=== PATIENT | male | born 1975 | race Caucasian/White ===

== ENCOUNTER 2016-12-11 18:17 | Inpatient (IN) | payer MEDICAID ==
[~2016-12-11] VITALS: Ht 172.7 cm; Wt 114.0 kg
[~2016-12-11 18:17] MED LIST: IBUP800T25 PO; TAMS-14 PO
[2016-12-11] MEDS ORDERED: SOD CHLORIDE 0.9% 1,000 ML IV STA (19:36)
[2016-12-11] MEDS ORDERED: morphine 4 MG/ML VIAL IV STA ×2 (19:36→23:31)
[2016-12-11] MEDS ORDERED: ONDANSETRON 4 MG INJ IV STA (19:36)
[2016-12-11] MEDS ORDERED: FAMOTIDINE 20 MG INJ IV STA (19:36)
--- NOTE | 2016-12-11 19:57 | ERD ---
ER Documentation Chief Complaint Date/Time DATE: 12/11/16 TIME: 19:54 Chief Complaint RUQ aabd pain x 3 days HPI This is a 41-year-old male, with past medical history for gallstones, presenting to emergency department with right upper quadrant abdominal pain and vomiting 3 days. Patient states he has sharp right upper quadrant abdominal pain that does not radiate. Patient rating pain 8/10. Emesis is nonbloody and nonbilious. Patient states he also has had multiple episodes of loose bowel movements. No constipation. Denies fevers or chills. Patient states he has been unable to tolerate anything by mouth. Did not take anything for pain. ROS All systems reviewed and are negative except as per history of present illness. 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 TABLE OPERATOR 07/07/15 Allergies Allergies: Coded Allergies: No Known Allergy (Unverified , 07/07/15) PMhx/Soc History of Surgery: Yes (Appy) Anesthesia Reaction: No Hx Neurological Disorder: No Hx Respiratory Disorders: No Hx Cardiac Disorders: No Hx Psychiatric Problems: No Hx Miscellaneous Medical Probl: Yes (Gallstones) Hx Alcohol Use: No Hx Substance Use: No Hx Tobacco Use: No Smoking Status: Never smoker Physical Exam Vitals Vital Signs Date Time Temp Pulse Resp B/P Pulse Ox O2 Delivery O2 Flow Rate FiO2 12/11/16 18:41 98.6 88 20 134/82 98 Physical Exam Const: No acute distress, alert Head: Atraumatic Eyes: Normal Conjunctiva ENT: Normal External Ears, Nose and Mouth. Neck: Full range of motion..~ No meningismus. Resp: Clear to auscultation bilaterally. No wheezing, rhonchi or crackles. Cardio: Regular rate and rhythm, no murmurs Abd: Soft, non distended. Normal bowel sounds, tenderness to palpation of right upper quadrant. negative Asher's sign. no McBurney's point tenderness. Skin: No petechiae or rashes Back: No midline or flank tenderness Ext: No cyanosis, or edema Neur: Awake and alert Psych: Normal Mood and Affect Result Diagram: 12/11/16201412/11/162014 Results 24 hrs Laboratory Tests Test 12/11/16 20:15 White Blood Count 6.610^3/ul Red Blood Count 5.4110^6/ul Hemoglobin 16.4g/dl Hematocrit 49.3% Mean Corpuscular Volume 91.1fl Mean Corpuscular Hemoglobin 30.3pg Mean Corpuscular Hemoglobin Concent 33.3g/dl Red Cell Distribution Width 12.6% Platelet Count 73637^3/UL Mean Platelet Volume 10.5fl Neutrophils % 82.1% Lymphocytes % 10.5% Monocytes % 6.1% Eosinophils % 0.5% Basophils % 0.5% Nucleated Red Blood Cells % 0.0/100WBC Neutrophils # 5.410^3/ul Lymphocytes # 0.710^3/ul Monocytes # 0.410^3/ul Eosinophils # 0.010^3/ul Basophils # 0.010^3/ul Nucleated Red Blood Cells # 0.010^3/ul Urine Color KAREN Urine Clarity CLEAR Urine pH 6.0 Urine Specific [place] 1.027 Urine Ketones NEGATIVEmg/dL Urine Nitrite NEGATIVEmg/dL Urine Bilirubin 2+mg/dL Urine Urobilinogen 2+mg/dL Urine Leukocyte Esterase NEGATIVELeu/ul Urine Microscopic RBC 0/HPF Urine Microscopic WBC 1/HPF Urine Mucus FEW/HPF Urine Hemoglobin NEGATIVEmg/dL Urine Glucose NEGATIVEmg/dL Urine Total Protein 1+mg/dl Sodium Level 138mmol/L Potassium Level 4.2mmol/L Chloride Level 100mmol/L Carbon Dioxide Level 30mmol/L Anion Gap 12 Blood Urea Nitrogen 9mg/dl Creatinine 0.84mg/dl Glucose Level 124mg/dl Calcium Level 9.6mg/dl Total Bilirubin 2.2mg/dl Direct Bilirubin 1.50mg/dl Indirect Bilirubin 0.7mg/dl Aspartate Amino Transf (AST/SGOT) 605IU/L Alanine Aminotransferase (ALT/SGPT) 628IU/L Alkaline Phosphatase 153IU/L Total Protein 7.9g/dl Albumin 4.3g/dl Globulin 3.60g/dl Albumin/Globulin Ratio 1.19 Lipase 93U/L Hepatitis B Surface Antigen Pending Hepatitis B Core Total Antibody Pending Hepatitis C Antibody Pending Current Medications Medications (Trade) Dose Ordered Sig/Irma Route PRN Reason Start Time Stop Time Status Last Admin Dose Admin Sodium Chloride (NS) 1,000 ml @ 1,000 mls/hr Q1H STAT IV 12/11/16 19:36 12/11/16 20:35 DC 12/11/16 20:07 Morphine Sulfate (morphine) 4 mg ONCE STAT IV 12/11/16 19:36 12/11/16 19:39 DC 12/11/16 20:08 Ondansetron HCl (Zofran Inj) 4 mg ONCE STAT IV 12/11/16 19:36 12/11/16 19:39 DC 12/11/16 20:07 Famotidine (Pepcid Iv) 20 mg ONCE STAT IV 12/11/16 19:36 12/11/16 19:39 DC 12/11/16 20:07 Procedures/MDM [place] [address] [facility] Main Line: [phone] DIAGNOSTIC IMAGING REPORT Patient: SURJIT MENDIOLA : 1975 Age: 41 Sex: M MR #: [id number] DOS: 12/11/161935 Ordering MD: ADRIANA JETER NP Location: [facility] Room/Bed: PROCEDURE: XR Chest. CLINICAL INDICATION: Abdominal pain. TECHNIQUE: Single frontal chest x-ray. COMPARISON: None available. FINDINGS: The lungs volumes are diminished. There are compressive changes with vascular crowding and basilar atelectasis. No pneumothorax, pleural effusion or consolidation is noted. The cardiomediastinal silhouette is unremarkable. No acute osseous abnormality is noted. IMPRESSION: 1. Low lung volumes with compressive changes and basilar atelectasis. 2. Otherwise, no acute cardiopulmonary abnormality. [place] [address] [facility] Main Line: [phone] DIAGNOSTIC IMAGING REPORT Patient: SURJIT MENDIOLA : 1975 Age: 41 Sex: M MR #: [id number] DOS: 12/11/161935 Ordering MD: ADRIANA JETER NP Location: [facility] Room/Bed: PROCEDURE: Right upper quadrant abdominal ultrasound. CLINICAL INDICATION: Abdominal pain TECHNIQUE: Ayon scale and color doppler ultrasound images of the right upper quadrant of the abdomen. COMPARISON: 07/07/2015 FINDINGS: Pancreas: Not adequately visualized due to overlying bowel gas. Liver: Morphology: Mildly enlarged measuring 19.3 cm. Contour:Normal, no evidence of nodularity. Echogenicity: Increased Focal lesions:None. Main portal vein: Patent with hepatopetal flow. Biliary System: Gallbladder wall: Measures upper limits of normal at 2.5 - 3 mm which appears to be partially due to contraction. Gallstones: Multiple are present. Intrahepatic bile ducts: Normal caliber. Common bile duct diameter (mm): 5.0 Kidneys: Right length (cm) : 11.4 Right cortical thickness: Normal. Echogenicity: Normal. Hydronephrosis: None. Renal calculi: None. Focal lesions: None. Free fluid/ascites: None. Other findings: None. IMPRESSION: Cholelithiasis without evidence of abnormal gallbladder wall thickening to suggest cholecystitis. Normal caliber of the intrahepatic and extrahepatic biliary system. Increased echogenicity of the liver parenchyma suggestive of hepatic steatosis. [place] [address] [facility] Main Line: [phone] DIAGNOSTIC IMAGING REPORT Patient: SURJIT MENDIOLA : 1975 Age: 41 Sex: M MR #: [id number] DOS: 12/11/16 1936 Ordering MD: ADRIANA JETER NP Location: E Room/Bed: PROCEDURE: CT abdomen and pelvis without intravenous contrast. CLINICAL INDICATION: Pain. TECHNIQUE: CT of the abdomen/pelvis was performed utilizing axial images with reconstructions in sagittal and coronal planes. The administered radiation dose is CTDI 23 mGy, DLP 1458 mGy-cm. One or more of the following dose reduction techniques were used: automated exposure control, adjustment of the mA and/or kV according to patient size and/or use of iterative reconstruction technique. COMPARISON: No pertinent prior examinations were submitted for comparison. FINDINGS: Visualized Chest: There is a 5 mm partially visualized nodule in the right lower lobe on the first image. Abdomen: The spleen, pancreas, gallbladder,and adrenal glands are unremarkable. The liver is markedly, diffusely decreased in attenuation, compatible with hepatic steatosis. The gallbladder is distended and contains some stones, most of which are seen in the region of the gallbladder neck. There is diffuse gallbladder wall thickening with some mild surrounding fat infiltrative changes. The kidneys are without hydronephrosis. No definite urinary calculi are seen. There is no evidence of bowel obstruction. The appendix is not seen. There is no evidence of acute appendicitis. No intra-abdominal free air is seen. There is no evidence of intra-abdominal adenopathy or free fluid. Pelvis: There is no evidence of pelvic adenopathy or free fluid. The prostate and bladder are unremarkable. Osseous structures: Unremarkable. IMPRESSION: Findings suggestive of cholecystitis including cholelithiasis, gallbladder distension, wall thickening and surrounding inflammatory changes. Marked hepatic steatosis. EKG: As interpreted by myself and Dr. Chairez Rate/Rhythm: Normal sinus rhythm with heart rate 79 bpm QRS, ST, T-waves: No changes consistent w/ acute ischemia Impression: No evidence of ischemia or arrhythmia MDM: This is a 41-year-old male presenting to emerge department with right upper quadrant abdominal pain, vomiting and diarrhea 3 days. Patient has had 2 episodes of yellow emesis today. He had multiple episodes of loose bowel movements today. Denies any bloody stool. No melena. CBC shows no significant anemia or infection. CMP shows no significant electrolyte imbalance. Elevated liver enzymes, AST 605, ALT 628 ,Alk [id number]. Lipase is 93. UA shows 2+ bilirubin, 2+urobilinogen. Chest x-ray reviewed by radiologist as low lung volumes with compressive changes and basilar atelectasis. Otherwise, no acute cardiopulmonary abnormality. US gallbladder reviewed by radiologist as Cholelithiasis without evidence of abnormal gallbladder wall thickening to suggest cholecystitis. Normal caliber of the intrahepatic and extrahepatic biliary system. Hepatic steatosis. CT abdomen and pelvis reviewed by radiologist as cholecystitis including cholelithiasis, gallbladder distension, wall thickening and surrounding inflammatory changes. Marked hepatic steatosis. Consulted Dr. Mcfarland regarding this patient and we agree that patient should be admitted and diagnosis is Cholecystitis. Departure Diagnosis: Primary Impression: Cholecystitis Condition: ADRIANA Gil NP Dec 11, 2016 19:57
[2016-12-11 20:26] LABS: BASOPHILS % 0.5 % (0.0-2.0); EOSINOPHILS % 0.5 % (0.0-7.0); HEMATOCRIT 49.3 % (42.0-52.0); HEMOGLOBIN 16.4 g/dl (14.0-18.0); LYMPHOCYTES # 0.7 10^3/ul (0.8-2.9); LYMPHOCYTES % 10.5 % (15.0-51.0); MEAN CORPUSCULAR HEMOGLOBIN 30.3 pg (29.0-33.0); MEAN CORPUSCULAR HGB CONC 33.3 g/dl (32.0-37.0); MEAN CORPUSCULAR VOLUME 91.1 fl (82.0-101.0); MEAN PLATELET VOLUME 10.5 fl (7.4-10.4); MONOCYTE # 0.4 10^3/ul (0.3-0.9); MONOCYTES % 6.1 % (0.0-11.0); NEUTROPHIL # 5.4 10^3/ul (1.6-7.5); NEUTROPHILS % 82.1 % (39.0-77.0); PLATELET COUNT 229 10^3/UL (140-415); RED BLOOD COUNT 5.41 10^6/ul (4.70-6.10); RED CELL DISTRIBUTION WIDTH 12.6 % (11.5-14.5); WHITE BLOOD COUNT 6.6 10^3/ul (4.8-10.8)
[2016-12-11 20:35] LABS: ADD UMIC YES; UR ASCORBIC ACID 40 mg/dL (NEGATIVE); UR BILIRUBIN (Dip) 2+ mg/dL (NEGATIVE); UR BLOOD (Dip) NEGATIVE (NEGATIVE); UR CLARITY CLEAR (CLEAR); UR COLOR AMBER (YELLOW); UR GLUCOSE (Dip) NEGATIVE (NEGATIVE); UR KETONES (Dip) NEGATIVE (NEGATIVE); UR LEUKOCYTE ESTERASE (Dip) NEGATIVE Leu/ul (NEGATIVE); UR MUCUS FEW /HPF (NONE SEEN); UR NITRITE (Dip) NEGATIVE (NEGATIVE); UR RBC 0 /HPF (0-5); UR SPECIFIC GRAVITY (Dip) 1.027 (1.003-1.030); UR TOTAL PROTEIN (Dip) 1+ mg/dl (NEGATIVE); UR UROBILINOGEN (Dip) 2+ mg/dL (NEGATIVE)
[2016-12-11 20:54] LABS: ALBUMIN 4.3 g/dl (3.3-4.9); ALBUMIN/GLOBULIN RATIO 1.19; BILIRUBIN,DIRECT 1.5 mg/dl (0.00-0.20); BILIRUBIN,INDIRECT 0.7 mg/dl (0-1.1); BILIRUBIN,TOTAL 2.2 mg/dl (0.2-1.3); CALCIUM 9.6 mg/dl (8.4-10.2); CREATININE 0.84 mg/dl (0.61-1.24); POTASSIUM 4.2 mmol/L (3.5-5.1); TOTAL PROTEIN 7.9 g/dl (6.1-8.1)
--- NOTE | 2016-12-11 21:18 | RADRPT ---
PROCEDURE: Right upper quadrant abdominal ultrasound. CLINICAL INDICATION: Abdominal pain TECHNIQUE: Ayon scale and color doppler ultrasound images of the right upper quadrant of the abdom en. COMPARISON: 07/07/2015 FINDINGS: Pancreas: Not adequately visualized due to overlying bowel gas. Liver: Morphology: Mildly enlarged measuring 19.3 cm. Contour:Normal, no evidence of nodularity. Echogenicity: Increased Focal lesions:None. Main portal vein: Patent with hepatopetal flow. Biliary System: Gallbladder wall: Measures upper limits of normal at 2.5 - 3 mm which appears to be partially due to contraction. Gallstones: Multiple are present. Intrahepatic bile ducts: Normal caliber. Common bile duct diameter (mm): 5.0 Kidneys: Right length (cm) : 11.4 Right cortical thickness: Normal. Echogenicity: Normal. Hydronephrosis: None. Renal calculi: None. Focal lesions: None. Free fluid/ascites: None. Other findings: None. IMPRESSION: Cholelithiasis without evidence of abnormal gallbladder wall thickening to suggest cholecystitis. Normal caliber of the intrahepatic and extrahepatic biliary system. Increased echogenicity of the liver parenchyma suggestive of hepatic steatosis. RPTAT: AADD .Trever Erazo MD, MD Date Time Electronically viewed and signed by .Trever Erazo MD, on 12/11/2016 21:18 .B/
--- NOTE | 2016-12-11 22:02 | RADRPT ---
PROCEDURE: CT abdomen and pelvis without intravenous contrast. CLINICAL INDICATION: Pain. TECHNIQUE: CT of the abdomen/pelvis was performed utilizing axial images with reconstructions in s agittal and coronal planes. The administered radiation dose is CTDI 23 mGy, DLP 1458 mGy-cm. One or more of the following dose reduction techniques were used: automated exposure control, adjustment of the mA and/or kV according to patient size and/or use of iterative reconstruction technique. COMPARISON: No pertinent prior examinations were submitted for comparison. FINDINGS: Visualized Chest: There is a 5 mm partially visualized nodule in the right lower lobe on the first i mage. Abdomen: The spleen, pancreas, gallbladder,and adrenal glands are unremarkable. The liver is markedly, dif fusely decreased in attenuation, compatible with hepatic steatosis. The gallbladder is distended and contains some stones, most of which are seen in the region of the gallbladder neck. There is diffus e gallbladder wall thickening with some mild surrounding fat infiltrative changes. The kidneys are without hydronephrosis. No definite urinary calculi are seen. There is no evidence of bowel obstruction. The appendix is not seen. There is no evidence of acute appendicitis. No intra-abdominal free air is seen. There is no evidence of intra-abdominal adenopathy or free fluid. Pelvis: There is no evidence of pelvic adenopathy or free fluid. The prostate and bladder are unremarkable. Osseous structures: Unremarkable. IMPRESSION: Findings suggestive of cholecystitis including cholelithiasis, gallbladder distension, wall thickeni ng and surrounding inflammatory changes. Marked hepatic steatosis. RPTAT: HIKT .Beni Vasquez MD, Date Time Electronically viewed and signed by .Beni Vasquez MD, on 12/11/2016 22:02 .T/
--- NOTE | 2016-12-11 22:04 | RADRPT ---
PROCEDURE: XR Chest. CLINICAL INDICATION: Abdominal pain. TECHNIQUE: Single frontal chest x-ray. COMPARISON: None available. FINDINGS: The lungs volumes are diminished. There are compressive changes with vascular crowding and basilar atelectasis. No pneumothorax, pleural effusion or consolidation is noted. The cardiomediastinal si lhouette is unremarkable. No acute osseous abnormality is noted. IMPRESSION: 1. Low lung volumes with compressive changes and basilar atelectasis. 2. Otherwise, no acute cardiopulmonary abnormality. RPTAT: HH .Esteban Waller MD, Date Time Electronically viewed and signed by .Esteban Waller MD, on 12/11/2016 22:04 .N/
[2016-12-11 23:05] LABS: HAAIG REFLEX REFLEX FILED
[2016-12-11 23:24] VITALS: TEMP 98.6
[2016-12-12] MEDS ORDERED: ACET-141 PO
[2016-12-12 00:04] LABS: HEPATITIS B CORE ANTIBODY NEGATIVE (NEGATIVE)
[2016-12-12 00:10] VITALS: BP 123/76; PULSE 85; RESP 18; Ht 172.7 cm; Wt 114.0 kg
[2016-12-12] MEDS ORDERED: NACL 0.9% 3 ML SYG IV SCH (01:00)
[2016-12-12] MEDS ORDERED: ONDANSETRON 4 MG INJ IV PRN (01:00)
[2016-12-12] MEDS ORDERED: ACETAMINOPHEN 325 MG TAB PO PRN (01:00)
[2016-12-12] MEDS: SOD CHLORIDE 0.9% 1,000 ML IV SCH ×3 (01:01→20:35)
[2016-12-12] MEDS: PIPER-TAZO 3.375 GM IV (PMX) 100 ML IVPB SCH ×5 (01:01→23:42)
[2016-12-12] MEDS: morphine 2 MG INJ IV PRN ×2 (01:02→21:46)
[2016-12-12 01:38] LABS: INR 1.05; PROTIME 13.7 Sec (12.2-14.2); PT RATIO 1.1
[2016-12-12 01:39] LABS: PARTIAL THROMBOPLASTIN TIME 28.5 Sec (25.0-35.0)
--- NOTE | 2016-12-12 02:27 | HP ---
Date/Time of Note Date/Time of Note DATE: 12/12/16 TIME: 02:23 Assessment/Plan VTE Prophylaxis VTE Prophylaxis Intervention: SCD's Lines/Catheters Urinary Cath still in place: No Assessment/Plan Chief Complaint/Hosp Course This is a 41-year-old male being admitted to the [facility] floor for: #1 acute cholecystitis: CAT scan shows: Findings suggestive of cholecystitis including cholelithiasis, gallbladder distension, wall thickening and surrounding inflammatory changes. Zosyn IV every 6 hours, keep patient n.p.o., IV fluid hydration with normal saline, IV pain control. Surgery consulted via the ED to the surgery on-call physician. #2 obesity: We will check hemoglobin A1c, TSH, lipid panel #3 DVT and GI prophylaxis: SCDs, acid rekha Further treatment strategy will be implemented as per the clinical course Problems: HPI/ROS Admit Date/Time Admit Date/Time Dec 11, 2016 at 23:05 Hx of Present Illness Chief complaint: Right upper quadrant abdominal pain This is a 41-year-old male, with past medical history for gallstones, presenting to emergency department with right upper quadrant abdominal pain and vomiting 3 days. Patient states he has sharp right upper quadrant abdominal pain that does not radiate. Patient rating pain 8/10. Emesis is nonbloody and nonbilious. Patient states he also has had multiple episodes of loose bowel movements. No constipation. Denies fevers or chills. Patient states he has been unable to tolerate anything by mouth. Did not take anything for pain. Allergies: NKDA Medications: None ROS Const: As per HPI Eyes : No pain discharge or redness or change in visual acuity ENT: No pain, sore throat, congestion, congestion, dysphagia or discharge Respiratory: No shortness of breath, cough, sputum, wheezing, or pleuritic pain Cardiovascular: No chest pain, palpitation, PND, or edema GI : As per HPI Genitourinary: No dysuria, hematuria, flank pain , discharge or CVA tenderness Musculoskeletal: No joint pain, back pain, neck pain, restricted range of motion in neck or joints Skin: No rash, bruising or hives Neuro: No headache, dizziness, syncope, seizure, focal weakness Endocrine: No polyuria, polydipsia, temperature intolerance Psych: No hallucination, depression, anxiety or suicidal ideation PMH/Family/Social Past Medical History Medical History: no pertinent history Past Surgical History Past Surgical Hx: appendectomy Family History Significant Family History: no pertinent family hx Social History Alcohol Use: occasionally Smoking Status: Never smoker Drug Use: none Exam/Review of Systems Vital Signs Vitals Vital Signs Date Time Temp Pulse Resp B/P Pulse Ox O2 Delivery O2 Flow Rate FiO2 12/12/16 00:10 98.9 85 18 123/76 94 Room Air Intake and Output 12/11/16 12/11/16 12/12/16 15:00 23:00 07:00 Intake Total 100 ml Balance 100 ml Exam Exam General: Patient is a obese male lying in bed in no acute distress HEENT: Atraumatic, normocephalic. The pupils are equal, round and reactive. Extraocular motor are intact Neck: Supple with full range of motion. No rigidity or meningismus Chest: Nontender Lungs: Clear to auscultation bilaterally no crackles rales or wheezing Heart: Normal S1-S2, Regular rhythm and rate. No murmur, S3, or S4 Abdomen: Soft, tenderness to palpation of the right upper quadrant, nondistended , no guarding. Extremities: Normal to inspection, no edema no cyanosis Neurologic: Normal mental status, speech normal, cranial nerves II through XII are intact, motor and sensory are intact, no focal weakness Additional Comments PROCEDURE: CT abdomen and pelvis without intravenous contrast. CLINICAL INDICATION: Pain. TECHNIQUE: CT of the abdomen/pelvis was performed utilizing axial images with reconstructions in sagittal and coronal planes. The administered radiation dose is CTDI 23 mGy, DLP 1458 mGy-cm. One or more of the following dose reduction techniques were used: automated exposure control, adjustment of the mA and/or kV according to patient size and/or use of iterative reconstruction technique. COMPARISON: No pertinent prior examinations were submitted for comparison. FINDINGS: Visualized Chest: There is a 5 mm partially visualized nodule in the right lower lobe on the first image. Abdomen: The spleen, pancreas, gallbladder,and adrenal glands are unremarkable. The liver is markedly, diffusely decreased in attenuation, compatible with hepatic steatosis. The gallbladder is distended and contains some stones, most of which are seen in the region of the gallbladder neck. There is diffuse gallbladder wall thickening with some mild surrounding fat infiltrative changes. The kidneys are without hydronephrosis. No definite urinary calculi are seen. There is no evidence of bowel obstruction. The appendix is not seen. There is no evidence of acute appendicitis. No intra-abdominal free air is seen. There is no evidence of intra-abdominal adenopathy or free fluid. Pelvis: There is no evidence of pelvic adenopathy or free fluid. The prostate and bladder are unremarkable. Osseous structures: Unremarkable. IMPRESSION: Findings suggestive of cholecystitis including cholelithiasis, gallbladder distension, wall thickening and surrounding inflammatory changes. Marked hepatic steatosis. RPTAT: HIKT .Beni Vasquez MD, Date Time Electronically viewed and signed by .Beni Vasquez MD, on 12/11/2016 22:02 .T/ CC: ADRIANA LAU NP PROCEDURE: XR Chest. CLINICAL INDICATION: Abdominal pain. TECHNIQUE: Single frontal chest x-ray. COMPARISON: None available. FINDINGS: The lungs volumes are diminished. There are compressive changes with vascular crowding and basilar atelectasis. No pneumothorax, pleural effusion or consolidation is noted. The cardiomediastinal silhouette is unremarkable. No acute osseous abnormality is noted. IMPRESSION: 1. Low lung volumes with compressive changes and basilar atelectasis. 2. Otherwise, no acute cardiopulmonary abnormality. RPTAT: .Esteban Waller MD, MD Date Time Electronically viewed and signed by .Esteban Waller MD, MD on 12/11/2016 22: 04 .N/ CC: ADRIANA LAU NP PROCEDURE: Right upper quadrant abdominal ultrasound. CLINICAL INDICATION: Abdominal pain TECHNIQUE: Ayon scale and color doppler ultrasound images of the right upper quadrant of the abdomen. COMPARISON: 07/07/2015 FINDINGS: Pancreas: Not adequately visualized due to overlying bowel gas. Liver: Morphology: Mildly enlarged measuring 19.3 cm. Contour:Normal, no evidence of nodularity. Echogenicity: Increased Focal lesions:None. Main portal vein: Patent with hepatopetal flow. Biliary System: Gallbladder wall: Measures upper limits of normal at 2.5 - 3 mm which appears to be partially due to contraction. Gallstones: Multiple are present. Intrahepatic bile ducts: Normal caliber. Common bile duct diameter (mm): 5.0 Kidneys: Right length (cm) : 11.4 Right cortical thickness: Normal. Echogenicity: Normal. Hydronephrosis: None. Renal calculi: None. Focal lesions: None. Free fluid/ascites: None. Other findings: None. IMPRESSION: Cholelithiasis without evidence of abnormal gallbladder wall thickening to suggest cholecystitis. Normal caliber of the intrahepatic and extrahepatic biliary system. Increased echogenicity of the liver parenchyma suggestive of hepatic steatosis. RPTAT: AADD .Trever Erazo MD, MD Date Time Electronically viewed and signed by .Trever Erazo MD, MD on 12/11/2016 21:18 .B/ CC: ADRIANA LAU NP Labs Result Diagram: 12/11/16201412/11/162014 Medications Medications Current Medications Sodium Chloride (NS) 1,000 ml @ 100 mls/hr Q10H IV Last administered on 01:01; Admin Dose 100 MLS/HR; Start 12/12/16 at 00:35 Ondansetron HCl (Zofran Inj) 4 mg Q6H PRN IV NAUSEA AND/OR VOMITING; Start at 01:00 Acetaminophen (Tylenol Tab) 650 mg Q6H PRN PO PAIN LEVEL 1-3 OR FEVER; Start at 01:00 Morphine Sulfate (morphine) 2 mg Q4H PRN IV SEVERE PAIN LEVEL 7-10 Last administered on 12/12/16 01:02; Admin Dose 2 MG; Start 12/12/16 at 01:00 Famotidine 20 mg 20 mg Q12 IV ; Start 12/12/16 at 09:00 Piperacillin Sod/ Tazobactam Sod (Zosyn 3.375gm/ 100 ml (Pmx)) 100 ml @ 200 mls /hr Q6 IVPB Last administered on 12/12/16t 01:01; Admin Dose 200 MLS/HR; Start 12/12/16 at 01:00 PATRICIA LOCKE Dec 12, 2016 02:27
[2016-12-12 05:20] LABS: BASOPHILS % 0.4 % (0.0-2.0); EOSINOPHILS # 0.1 10^3/ul (0.0-0.5); EOSINOPHILS % 1.8 % (0.0-7.0); HEMATOCRIT 45.1 % (42.0-52.0); HEMOGLOBIN 15.2 g/dl (14.0-18.0); LYMPHOCYTES # 1.1 10^3/ul (0.8-2.9); LYMPHOCYTES % 20.4 % (15.0-51.0); MEAN CORPUSCULAR HEMOGLOBIN 31.4 pg (29.0-33.0); MEAN CORPUSCULAR HGB CONC 33.7 g/dl (32.0-37.0); MEAN CORPUSCULAR VOLUME 93.2 fl (82.0-101.0); MEAN PLATELET VOLUME 10.6 fl (7.4-10.4); MONOCYTE # 0.4 10^3/ul (0.3-0.9); MONOCYTES % 6.7 % (0.0-11.0); NEUTROPHIL # 3.9 10^3/ul (1.6-7.5); NEUTROPHILS % 70.5 % (39.0-77.0); PLATELET COUNT 213 10^3/UL (140-415); RED BLOOD COUNT 4.84 10^6/ul (4.70-6.10); RED CELL DISTRIBUTION WIDTH 12.5 % (11.5-14.5); WHITE BLOOD COUNT 5.6 10^3/ul (4.8-10.8)
[2016-12-12 05:31] LABS: CHOL/HDL RATIO 4.8 RATIO
[2016-12-12 05:35] LABS: ALBUMIN 3.7 g/dl (3.3-4.9); ALBUMIN/GLOBULIN RATIO 1.12; BILIRUBIN,DIRECT 1.8 mg/dl (0.00-0.20); BILIRUBIN,INDIRECT 0.8 mg/dl (0-1.1); BILIRUBIN,TOTAL 2.6 mg/dl (0.2-1.3); CALCIUM 8.9 mg/dl (8.4-10.2); CREATININE 0.8 mg/dl (0.61-1.24)
[2016-12-12 07:41] VITALS: BP 113/58; RESP 18
[2016-12-12] MEDS: FAMOTIDINE 20 MG INJ IV SCH ×2 (08:56→21:43)
--- NOTE | 2016-12-12 09:44 | PN ---
Date/Time of Note Date/Time of Note DATE: 12/12/16 TIME: 09:38 Assessment/Plan VTE Prophylaxis VTE Prophylaxis Intervention: SCD's Lines/Catheters Urinary Cath still in place: No Assessment/Plan Chief Complaint/Hosp Course Assessment and plan #1 acute cholecystitis: CAT scan shows: Findings suggestive of cholecystitis including cholelithiasis, gallbladder distension, wall thickening and surrounding inflammatory changes. General surgery has been consulted, obtain MRCP secondary to hyperbilirubinemia Continue Zosyn IV every 6 hours, keep patient n.p.o., IV fluid hydration with normal saline, IV pain control. #2. Hyperbilirubinemia Obtain MRCP In case of any common bile duct distention or choledocholithiasis we will obtain GI consultation Keep patient n.p.o. #3. obesity: Lipid panel and TSH are within normal limits Recommend low calorie diet when patient is able to tolerate p.o. intake #4. Hepatic steatosis Secondary to #3, panels are within normal limits DVT and GI prophylaxis: SCDs, acid rekha Further treatment strategy will be implemented as per the clinical course Problems: Subjective 24 Hr Interval Summary Free Text/Dictation Patient continues to complain of having abdominal pain N.p.o. Denies of any chest pain or shortness of breath Has not had any episode of nausea and vomiting since admission Exam/Review of Systems Vital Signs Vitals Vital Signs Date Time Temp Pulse Resp B/P Pulse Ox O2 Delivery O2 Flow Rate FiO2 12/12/16 07:41 97.8 72 18 113/58 94 12/12/16 00:10 Room Air Intake and Output 12/11/16 12/11/16 12/12/16 15:00 23:00 07:00 Intake Total 700 ml Balance 700 ml Exam General: The patient is moderately overweight, Not in acute distress. HEENT: Atraumatic, normocephalic. The pupils are equal and round . Neck: Supple with full range of motion. Chest: Normal expansion of the thorax during inspiration Lungs: Clear to auscultation bilaterally Heart: Normal S1-S2, Regular rhythm and rate. Abdomen: Soft , mildly tender epigastric region, nondistended , bowel sounds are present. Extremities: Normal to inspection, no edema no cyanosis Neurologic: Normal mental status,The patient is awake, alert and oriented . Results Result Diagram: 12/12/165 12/12/16424 Results 24 hrs Laboratory Tests Test 12/11/16 20:15 12/12/16 00:58 12/12/16 04:25 White Blood Count 6.6 5.6 Red Blood Count 5.41 4.84 Hemoglobin 16.4 15.2 Hematocrit 49.3 45.1 Mean Corpuscular Volume 91.1 93.2 Mean Corpuscular Hemoglobin 30.3 31.4 Mean Corpuscular Hemoglobin Concent 33.3 33.7 Red Cell Distribution Width 12.6 12.5 Platelet Count 229 213 Mean Platelet Volume 10.5 H 10.6 H Neutrophils % 82.1 H 70.5 Lymphocytes % 10.5 L 20.4 Monocytes % 6.1 6.7 Eosinophils % 0.5 1.8 Basophils % 0.5 0.4 Nucleated Red Blood Cells % 0.0 0.0 Neutrophils # 5.4 3.9 Lymphocytes # 0.7 L 1.1 Monocytes # 0.4 0.4 Eosinophils # 0.0 0.1 Basophils # 0.0 0.0 Nucleated Red Blood Cells # 0.0 0.0 Urine Color KAREN Urine Clarity CLEAR Urine pH 6.0 Urine Specific [place] 1.027 Urine Ketones NEGATIVE Urine Nitrite NEGATIVE Urine Bilirubin 2+ H Urine Urobilinogen 2+ H Urine Leukocyte Esterase NEGATIVE Urine Microscopic RBC 0 Urine Microscopic WBC 1 Urine Mucus FEW A Urine Hemoglobin NEGATIVE Urine Glucose NEGATIVE Urine Total Protein 1+ H Sodium Level 138 138 Potassium Level 4.2 4.0 Chloride Level 100 104 Carbon Dioxide Level 30 28 Anion Gap 12 10 Blood Urea Nitrogen 9 9 Creatinine 0.84 0.80 Glucose Level 124 105 Calcium Level 9.6 8.9 Total Bilirubin 2.2 H 2.6 H Direct Bilirubin 1.50 H 1.80 H Indirect Bilirubin 0.7 0.8 Aspartate Amino Transf (AST/SGOT) 605 H 545 H Alanine Aminotransferase (ALT/SGPT) 628 H 617 H Alkaline Phosphatase 153 H 145 H Total Protein 7.9 7.0 Albumin 4.3 3.7 Globulin 3.60 H 3.30 H Albumin/Globulin Ratio 1.19 1.12 Lipase 93 Hepatitis B Surface Antigen NEGATIVE Hepatitis B Core Total Antibody NEGATIVE Hepatitis C Antibody NEGATIVE Prothrombin Time 13.7 Prothrombin Time Ratio 1.1 INR International Normalized Ratio 1.05 Activated Partial Thromboplast Time 28.5 Hemoglobin A1c 5.7 Magnesium Level 2.3 Triglycerides Level 95 Cholesterol Level 130 LDL Cholesterol, Calculated 84 HDL Cholesterol 27 Cholesterol/HDL Ratio 4.8 Thyroid Stimulating Hormone (TSH) 2.260 Medications Medications Current Medications Sodium Chloride (NS) 1,000 ml @ 100 mls/hr Q10H IV Last administered on 01:01; Admin Dose 100 MLS/HR; Start 12/12/16 at 00:35 Ondansetron HCl (Zofran Inj) 4 mg Q6H PRN IV NAUSEA AND/OR VOMITING; Start at 01:00 Acetaminophen (Tylenol Tab) 650 mg Q6H PRN PO PAIN LEVEL 1-3 OR FEVER; Start at 01:00 Morphine Sulfate (morphine) 2 mg Q4H PRN IV SEVERE PAIN LEVEL 7-10 Last administered on 12/12/16 01:02; Admin Dose 2 MG; Start 12/12/16 at 01:00 Famotidine 20 mg 20 mg Q12 IV Last administered on 12/12/16 08:56; Admin Dose 20 MG; Start 12/12/16 at 09:00 Piperacillin Sod/ Tazobactam Sod (Zosyn 3.375gm/ 100 ml (Pmx)) 100 ml @ 200 mls /hr Q6 IVPB Last administered on 12/12/16 05:28; Admin Dose 200 MLS/HR; Start 12/12/16 at 01:00 NOEMÍ FUENTES MD Dec 12, 2016 09:44
[2016-12-12 14:08] VITALS: BP 110/66; RESP 18
--- NOTE | 2016-12-12 18:45 | RADRPT ---
PROCEDURE: MRI MRCP. CLINICAL INDICATION: Transaminitis. Right upper quadrant pain for 1 month. TECHNIQUE: MRCP was performed without contrast. 3-D/multiplanar reformations and coronal rotating M IP images of the biliary tree were performed by the technologist and at an independent workstation. COMPARISON: CT dated 12/11/2016 and ultrasound dated 12/11/2016. FINDINGS: There is no intra or extrahepatic biliary ductal dilatation or filling defect within the biliary tree. There is irregular thickening of the common bile duct at its midportion. There is no pancreatic ductal dilatation or intraluminal filling defect. There are multiple gallstones, the lar gest measuring 3.1 cm, with diffuse gallbladder wall thickening measuring 4 mm. There is an enlarged portacaval lymph node measuring 12 mm in short axis. The remaining portions of the visualized upper abdomen are unremarkable. IMPRESSION: 1. Cholelithiasis with nonspecific irregular wall thickening of the gallbladder. While this can be seen with chronic cholecystitis, underlying neoplasm is not excluded. Pre and post contrast MRI woul d be helpful to further delineate these findings. Surgical consultation may be warranted. No pericho lecystic inflammatory change or fluid to suggest acute cholecystitis. 2. Nondilated common bile duct with nonspecific wall thickening at the midportion of the common lesa e duct, which may be reactive in nature. No intraluminal filling defect or choledocholithiasis. 3. Nonspecific enlarged portacaval lymph node, which may be reactive in nature. Attention on follow -up is recommended. RPTAT: HLBP .Thai Gaines MD, MD Date Time Electronically viewed and signed by .Thai Gaines MD, MD on 12/12/2016 18:45 .P/
[2016-12-12 19:42] VITALS: BP 119/69; RESP 20
--- NOTE | 2016-12-12 20:19 | CONS ---
Date/Time of Note Date/Time of Note DATE: 12/12/16 TIME: 20:19 Assessment/Plan Assessment/Plan Additional Assessment/Plan [facility] INPATIENT CONSULTATION NOTE DATE OF SERVICE: 12/12/2016 PLACE OF SERVICE: [facility], fourth floor ASSESSMENT AND PLAN: Very pleasant 41-year-old gentleman with known history of cholelithiasis and BMI 38.2, admitted to the emergency department at [facility] on 12/11/2016 with cholelithiasis, acute cholecystitis, and possible choledocholithiasis. Final report of MRCP was pending at the time of my visit with the patient. Due to elevated liver function and injury parameters, the patient may require ERCP and for this reason I recommended gastroenterology consultation. Patient also has hepatic steatosis. I strongly recommended that the patient undergoes laparoscopic cholecystectomy towards the end of this admission. Explained to patient and his and answered all questions. Patient and family appear to understand and agreed with plans. With above assessment, I've recommended the followin. Follow-up after MRCP results 2. Gastrology consultation with consideration for possible need for ERCP 3. Continue antimicrobial therapy with acute cholecystitis 4. Laparoscopic, possible open cholecystectomy perhaps as early as tomorrow afternoon Thank you very much for having me involved in the care of this very pleasant patient and wonderful family. If you have any questions, please feel free to contact me at [phone]. Nature of presenting problem: High severity Please note that, given the multiple number of diagnoses or management options, the moderate amount and/or complexity of data needed to be reviewed, and I risk of complications and/or morbidity or mortality, this qualifies as moderate complexity type of decision-making. Disclaimers: 1. Inadvertent spelling and grammatical errors are likely due to electronic health record (EHR)/dictation software use and do not reflect on the quality of delivered patient care. 2. The electronic timestamp recorded on this note does not necessarily reflect the actual date and time of the visit. 3. Portions of this note are created through electronic templates and computer algorithms that may bring in information either from the system or from other physicians and providers that are outside of my control and may not be always accurate. In general (but not always) this happens either in the beginning or at the end of the note. My portions of the gathered data are generally dictated in 1 continuous block of text and entered into one field in the EHR. 4. There may be other unanticipated errors in the note that are outside of my control. I can only attest to the portions of the note that I have created. Updated clinical summary: Very pleasant 41-year-old gentleman with known history of cholelithiasis and BMI 38.2, admitted to the emergency department at [facility] on 12/11/2016 with cholelithiasis, acute cholecystitis, and possible choledocholithiasis. Comorbidities: 1. BMI 38.2 2. Known cholelithiasis 3. Hepatic steatosis 4. Appendectomy CONSULTATION REQUESTED BY: Susanne Estrella MD HISTORY OF PRESENT ILLNESS: The patient is a very pleasant 41-year-old gentleman with above-mentioned comorbidities who were kindly asked consult regarding management of possible acute cholecystitis. Patient reported 3 day history of abdominal pain that was localized to right upper quadrant, associated with nausea and vomiting. No blood in the stool or urine. 8 out of 10 in strength. No significant alleviating factors or exacerbating factors. No changes in appetite. No fevers or chills. ALLERGIES: NO KNOWN DRUG ALLERGIES MEDICATIONS Documented in the electronic records and reviewed by me. Please see the electronic records for details, as well as details for inpatient medications which were also reviewed by me. SOCIAL HISTORY: The patient lives with family. 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 REVIEW OF SYSTEMS: Other than mentioned above, there were no other pertinent positives or pertinent negatives in an otherwise complete 14 point review of systems. PHYSICAL EXAMINATION GENERAL: The patient appears to be a very pleasant gentleman of descent lying in bed, appearing stated age, and otherwise in no acute distress. BMI: 38.2 VITAL SIGNS: AVSS (please also see auto important data if available as well as the electronic records) HEENT: Normocephalic and atraumatic. Extraocular muscles and hearing are grossly intact bilaterally and symmetrically. Sclerae are nonicteric. Oral cavity is clear; oral mucosa appear to be pink and moist. Dentition: fair. NECK: Supple. There is no lymphadenopathy or JVD. There is no submental, submandibular or supraclavicular lymphadenopathy. CHEST: Rises symmetrically with each breath; patient is breathing comfortably. There are no audible wheezes, rales or rhonchi on the gross exam. HEART: Pulse is regular and palpable on the right wrist. Capillary refill is normal. Carotid pulses are palpable bilaterally and symmetrically in the neck. EXTREMITIES: Lower extremities contain no pitting edema around the ankles bilaterally and symmetrically. ABDOMEN: Abdomen is soft, mild to moderately tender in the right upper quadrant and nondistended. No evidence of ascites, organomegaly, caput medusae , engorged subcutaneous veins, or other abnormalities. There are no peritoneal signs or guarding. SKIN: Appears to be pink and feels warm to touch. NEUROLOGIC: Awake, alert, and follows commands appropriately. LABORATORY DATA: See below IMAGING: See electronic chart. Please note that I've personally reviewed all pertinent available images and I agree in general with their overall reported findings. Consultation Date/Type/Reason Admit Date/Time Dec 11, 2016 at 23:05 Past Medical History Medical History: no pertinent history Past Surgical History Past Surgical Hx: appendectomy Social History Alcohol Use: occasionally Smoking Status: Never smoker Drug Use: none Exam/Review of Systems Vital Signs Vitals Vital Signs Date Time Temp Pulse Resp B/P Pulse Ox O2 Delivery O2 Flow Rate FiO2 12/12/16 19:42 98.1 66 20 119/69 95 12/12/16 00:10 Room Air Intake and Output 12/11/16 12/11/16 12/12/16 15:00 23:00 07:00 Intake Total 700 ml Balance 700 ml Results Result Diagram: 12/12/16 0425 12/12/16 0425 Results 24 hrs Laboratory Tests Test 12/12/16 00:58 12/12/16 04:25 Prothrombin Time 13.7 Prothrombin Time Ratio 1.1 INR International Normalized Ratio 1.05 Activated Partial Thromboplast Time 28.5 White Blood Count 5.6 Red Blood Count 4.84 Hemoglobin 15.2 Hematocrit 45.1 Mean Corpuscular Volume 93.2 Mean Corpuscular Hemoglobin 31.4 Mean Corpuscular Hemoglobin Concent 33.7 Red Cell Distribution Width 12.5 Platelet Count 213 Mean Platelet Volume 10.6 H Neutrophils % 70.5 Lymphocytes % 20.4 Monocytes % 6.7 Eosinophils % 1.8 Basophils % 0.4 Nucleated Red Blood Cells % 0.0 Neutrophils # 3.9 Lymphocytes # 1.1 Monocytes # 0.4 Eosinophils # 0.1 Basophils # 0.0 Nucleated Red Blood Cells # 0.0 Sodium Level 138 Potassium Level 4.0 Chloride Level 104 Carbon Dioxide Level 28 Anion Gap 10 Blood Urea Nitrogen 9 Creatinine 0.80 Glucose Level 105 Hemoglobin A1c 5.7 Calcium Level 8.9 Magnesium Level 2.3 Total Bilirubin 2.6 H Direct Bilirubin 1.80 H Indirect Bilirubin 0.8 Aspartate Amino Transf (AST/SGOT) 545 H Alanine Aminotransferase (ALT/SGPT) 617 H Alkaline Phosphatase 145 H Total Protein 7.0 Albumin 3.7 Globulin 3.30 H Albumin/Globulin Ratio 1.12 Triglycerides Level 95 Cholesterol Level 130 LDL Cholesterol, Calculated 84 HDL Cholesterol 27 Cholesterol/HDL Ratio 4.8 Thyroid Stimulating Hormone (TSH) 2.260 Medications Medications Current Medications Sodium Chloride (NS) 1,000 ml @ 100 mls/hr Q10H IV Last administered on 12:19; Admin Dose 100 MLS/HR; Start 12/12/16 at 00:35 Ondansetron HCl (Zofran Inj) 4 mg Q6H PRN IV NAUSEA AND/OR VOMITING; Start at 01:00 Acetaminophen (Tylenol Tab) 650 mg Q6H PRN PO PAIN LEVEL 1-3 OR FEVER; Start at 01:00 Morphine Sulfate (morphine) 2 mg Q4H PRN IV SEVERE PAIN LEVEL 7-10 Last administered on 12/12/16 01:02; Admin Dose 2 MG; Start 12/12/16 at 01:00 Famotidine 20 mg 20 mg Q12 IV Last administered on 12/12/16 08:56; Admin Dose 20 MG; Start 12/12/16 at 09:00 Piperacillin Sod/ Tazobactam Sod (Zosyn 3.375gm/ 100 ml (Pmx)) 100 ml @ 200 mls /hr Q6 IVPB Last administered on 12/12/16 17:48; Admin Dose 200 MLS/HR; Start 12/12/16 at 01:00 GREG LAWRENCE M.D. Dec 12, 2016 20:19
[2016-12-13] VITALS (29 sets, daily range): BP systolic 109–140; BP diastolic 55–82; PULSE 68–99; RESP 18–108
[2016-12-13] MEDS ORDERED: BUPIVACAINE 0.5%/EPI (SDV) 10 ML INJ INJ ONE
[2016-12-13] MEDS: SOD CHLORIDE 0.9% 1,000 ML IV SCH ×2 (03:21→16:35)
[2016-12-13 05:44] LABS: BASOPHIL # 0.1 10^3/ul (0.0-0.1); BASOPHILS % 0.9 % (0.0-2.0); EOSINOPHILS # 0.3 10^3/ul (0.0-0.5); EOSINOPHILS % 4.3 % (0.0-7.0); HEMATOCRIT 46.3 % (42.0-52.0); HEMOGLOBIN 15.3 g/dl (14.0-18.0); LYMPHOCYTES # 1.3 10^3/ul (0.8-2.9); MEAN CORPUSCULAR HEMOGLOBIN 30.9 pg (29.0-33.0); MEAN CORPUSCULAR VOLUME 93.5 fl (82.0-101.0); MEAN PLATELET VOLUME 10.5 fl (7.4-10.4); MONOCYTE # 0.3 10^3/ul (0.3-0.9); MONOCYTES % 5.9 % (0.0-11.0); NEUTROPHIL # 3.8 10^3/ul (1.6-7.5); NEUTROPHILS % 65.4 % (39.0-77.0); PLATELET COUNT 194 10^3/UL (140-415); RED BLOOD COUNT 4.95 10^6/ul (4.70-6.10); RED CELL DISTRIBUTION WIDTH 12.8 % (11.5-14.5); WHITE BLOOD COUNT 5.8 10^3/ul (4.8-10.8)
[2016-12-13] MEDS: PIPER-TAZO 3.375 GM IV (PMX) 100 ML IVPB SCH ×2 (05:57→12:24)
[2016-12-13 06:45] LABS: ALBUMIN 3.6 g/dl (3.3-4.9); ALBUMIN/GLOBULIN RATIO 1.02; BILIRUBIN,INDIRECT 0.7 mg/dl (0-1.1); BILIRUBIN,TOTAL 0.7 mg/dl (0.2-1.3); CALCIUM 8.8 mg/dl (8.4-10.2); CREATININE 0.99 mg/dl (0.61-1.24); MAGNESIUM 2.1 mg/dl (1.7-2.5); POTASSIUM 4.2 mmol/L (3.5-5.1); TOTAL PROTEIN 7.1 g/dl (6.1-8.1)
[2016-12-13] MEDS ORDERED: ROCURONIUM 50 MG INJ ONE (07:00)
[2016-12-13] MEDS: FAMOTIDINE 20 MG INJ IV SCH ×2 (08:37→20:55)
--- NOTE | 2016-12-13 14:57 | HPN ---
Date/Time of Note Date/Time of Note DATE: 12/13/16 TIME: 14:56 Interval H&P Admission Note Pt. seen H&P reviewed: No system changes Pt. seen H&P reviewed. No system changes (I attest that I have seen and examined the patient and reviewed the operation in detail, as well as its risks , benefits and alternatives of the operation). I attest that I have seen and examined the patient and reviewed in detail the operation, and its associated risks, benefits and alternative. I have answered all the patient's questions to the best of my ability and the patient wishes to proceed. Please refer to rest of electronic medical record for additional updates. GREG LAWRENCE M.D. Dec 13, 2016 14:57
[2016-12-13] MEDS ORDERED: PIPER-TAZO 3.375 GM IV (PMX) 100 ML IVPB ONE (15:00)
--- NOTE | 2016-12-13 15:35 | PN ---
Date/Time of Note Date/Time of Note DATE: 12/13/16 TIME: 15:31 Assessment/Plan VTE Prophylaxis VTE Prophylaxis Intervention: SCD's Lines/Catheters IV Catheter Type (from Nrs): Peripheral IV Urinary Cath still in place: No Assessment/Plan Assessment/Plan 1. Acute cholecystitis, cholelithiasis, on antibiotics, surgery today 2. Transaminitis due to #1, follow up with LFTs 3. Obesity 4. H/o appendectomy Subjective 24 Hr Interval Summary Free Text/Dictation abdominal pain Exam/Review of Systems Vital Signs Vitals Vital Signs Date Time Temp Pulse Resp B/P Pulse Ox O2 Delivery O2 Flow Rate FiO2 12/13/16 14:08 98.6 77 20 112/69 99 Room Air Intake and Output 12/12/16 12/12/16 12/13/16 15:00 23:00 07:00 Intake Total 600 ml 650 ml 850 ml Output Total 1000 ml Balance 600 ml 650 ml -150 ml Exam Constitutional: alert, obese, oriented, well developed Psych: nl mood/affect, no complaints Head: atraumatic, normocephalic Eyes: EOMI, PERRL, nl conjunctiva, nl lids, nl sclera ENMT: nl external ears & nose, nl lips & teeth, nl nasal mucosa & septum Neck: non-tender, supple Respiratory: clear to auscultation, normal air movement, No congested cough, No crackles/rales, No diminished breath sounds, No intercostal retraction, No labored breathing, No other, No respirations, No tactile fremitus, No wheezing Cardiovascular: nl pulses, regular rate and rhythm, No S3, No S4, No bruits, No diastolic murmur, No edema, No gallop, No irregular rhythm, No jugular venous distention (JVD), No murmurs/extra sounds, No other, No rub, No systolic murmur Gastrointestinal: nl liver, spleen, non-tender, soft, No ascites, No bowel sounds, No distended, No firm, No hepatomegaly, No mass , No other, No rebound or guarding, No splenomegaly, No surgical scars, No tender Musculoskeletal: nl extremities to inspection Extremities: normal pulses, No calf tenderness, No clubbing, No cyanosis, No edema, No other, No palpable cord, No pitting pedal edema, No tenderness Neurological: PREMIUM REPRESENTATIVE II-XII intact, nl mental status, nl speech, nl strength Skin: nl turgor Lymph: nl lymph nodes Results Result Diagram: 12/13/16 0505 12/13/16 0500 Results 24 hrs Laboratory Tests Test 12/13/16 05:00 12/13/16 05:05 Sodium Level 137 Potassium Level 4.2 Chloride Level 101 Carbon Dioxide Level 31 Anion Gap 9 Blood Urea Nitrogen 11 Creatinine 0.99 Glucose Level 85 Calcium Level 8.8 Magnesium Level 2.1 Total Bilirubin 0.7 Direct Bilirubin 0.00 # Indirect Bilirubin 0.7 Aspartate Amino Transf (AST/SGOT) 262 #H Alanine Aminotransferase (ALT/SGPT) 547 H Alkaline Phosphatase 162 H Total Protein 7.1 Albumin 3.6 Globulin 3.50 H Albumin/Globulin Ratio 1.02 White Blood Count 5.8 Red Blood Count 4.95 Hemoglobin 15.3 Hematocrit 46.3 Mean Corpuscular Volume 93.5 Mean Corpuscular Hemoglobin 30.9 Mean Corpuscular Hemoglobin Concent 33.0 Red Cell Distribution Width 12.8 Platelet Count 194 Mean Platelet Volume 10.5 H Neutrophils % 65.4 Lymphocytes % 23.0 Monocytes % 5.9 Eosinophils % 4.3 Basophils % 0.9 Nucleated Red Blood Cells % 0.0 Neutrophils # 3.8 Lymphocytes # 1.3 Monocytes # 0.3 Eosinophils # 0.3 Basophils # 0.1 Nucleated Red Blood Cells # 0.0 Medications Medications Current Medications Sodium Chloride (NS) 1,000 ml @ 100 mls/hr Q10H IV Last administered on 03:21; Admin Dose 100 MLS/HR; Start 12/12/16 at 00:35 Ondansetron HCl (Zofran Inj) 4 mg Q6H PRN IV NAUSEA AND/OR VOMITING; Start at 01:00 Acetaminophen (Tylenol Tab) 650 mg Q6H PRN PO PAIN LEVEL 1-3 OR FEVER; Start at 01:00 Morphine Sulfate (morphine) 2 mg Q4H PRN IV SEVERE PAIN LEVEL 7-10 Last administered on 12/12/16 21:46; Admin Dose 2 MG; Start 12/12/16 at 01:00 Famotidine 20 mg 20 mg Q12 IV Last administered on 12/13/16 08:37; Admin Dose 20 MG; Start 12/12/16 at 09:00 Piperacillin Sod/ Tazobactam Sod (Zosyn 3.375gm/ 100 ml (Pmx)) 100 ml @ 200 mls /hr Q6 IVPB Last administered on 12/13/16t 12:24; Admin Dose 200 MLS/HR; Start 12/12/16 at 01:00 TODD QUESADA MD Dec 13, 2016 15:35
[2016-12-13] MEDS ORDERED: BUPIVACAINE 0.5%/EPI (SDV) 10 ML INJ ONE (15:52)
[2016-12-13] MEDS ORDERED: LIDOCAINE 2% (SDV) 5 ML INJ ONE (15:53)
[2016-12-13] MEDS ORDERED: MIDAZOLAM 1 MG/ML 2 ML INJ ONE (15:53)
[2016-12-13] MEDS ORDERED: PROPOFOL 20 ML ONE (15:53)
[2016-12-13] MEDS ORDERED: SUCCINYLCHOLINE CHLORIDE 100 MG/5 ML SYG IV ONE (15:53)
[2016-12-13] MEDS ORDERED: DEXAMETHASONE 4 MG/ML 1 ML INJ ONE (16:02)
[2016-12-13] MEDS ORDERED: ONDANSETRON 4 MG INJ ONE (16:02)
[2016-12-13] MEDS ORDERED: FAMOTIDINE 20 MG INJ ONE (16:02)
[2016-12-13] MEDS ORDERED: PHENYLephrine (100 MCG/ML) 5ML SYG ONE (16:03)
[2016-12-13] MEDS ORDERED: ROPIVACAINE 0.2% 20 ML VIAL ONE (16:05)
[2016-12-13] MEDS ORDERED: SUGAMMADEX SODIUM 200 MG/2 ML VIAL IV ONE (18:03)
--- NOTE | 2016-12-13 18:23 | OPR ---
Date/Time of Note Date/Time of Note DATE: 12/13/16 TIME: 18:23 Operative Report Surgeon see signature line Operative\Procedure Findings [facility] INPATIENT OPERATIVE NOTE PLACE OF SERVICE: [facility] DATE OF SURGERY: 12/13/2016 PREOPERATIVE DIAGNOSIS: 1. Acute cholecystitis with known cholelithiasis 2. BMI 38.2 3. Hepatic steatosis 4. Appendectomy POSTOPERATIVE DIAGNOSIS: 1. Severe acute on chronic cholecystitis with known cholelithiasis 2. BMI 38.2 3. Hepatic steatosis 4. Appendectomy OPERATION: 1. Laparoscopic cholecystectomy, modifier 22 2. Laparoscopic core needle liver biopsy, segment 5 (3 cores) 3. Lysis of adhesions (45 minutes) SURGEON: Greg Lawrence M.D. NURSING HOME DIRECTOR: None ANESTHESIA: General endotracheal tube anesthesia ANESTHESIOLOGIST: Rita Brown M.D. BRIEF SUMMARY: An otherwise uncomplicated but challenging laparoscopic cholecystectomy with core needle liver biopsy were performed with findings of severe acute on chronic cholecystitis and significant hepatic steatosis. Updated clinical summary: Very pleasant 41-year-old gentleman with known history of cholelithiasis and BMI 38.2, admitted to the emergency department at [facility] on 12/11/2016 with cholelithiasis, acute cholecystitis, and possible choledocholithiasis. Comorbidities: 1. BMI 38.2 2. Known cholelithiasis 3. Hepatic steatosis 4. Appendectomy BRIEF HISTORY: The patient is a very pleasant 41-year-old gentleman with known history of cholelithiasis and BMI 38.2, admitted to the emergency department at [facility] on 12/11/2016 with cholelithiasis, acute cholecystitis, and possible choledocholithiasis. Final report of MRCP showed no obvious evidence of choledocholithiasis. Patient's elevated liver function and injury parameters improved on day of operation. Patient also had evidence of hepatic steatosis. I met with the patient and family and counseled them regarding the possible options of treatment, and I strongly suggested a laparoscopic, possible open cholecystectomy. We reviewed the operation in detail as well as the risks, benefits, alternatives, and expected outcomes of this operation. After careful consideration of all the risks, benefits, and alternatives, the patient and family appeared to understand those risks and wished to proceed with surgery. For a detailed report of my consultation with patient and family, please refer to my separate consultation note. STATEMENT OF THE INFORMED CONSENT: The patient and family appeared to understand the risks of the operation to include, but not be limited to risk of postoperative pain and scar tissue, possible infection or bleeding requiring other interventions such as opening the wound, placement of drainage catheters, or other operative interventions; possible injury to surrounding to structures including bowel, bladder, bile duct, or blood vessels, or solid organs such as liver, kidney, or pancreas requiring other interventions or procedures; possible leakage of bile from surgical clip sites, suture lines, or worse, from common bile duct injury, causing significant increase in morbidity and mortality and requiring multiple interventions including but not limited to, placement of drainage catheters, imaging studies, as well as operative interventions; possible other source of sepsis such as urinary tract infections or pneumonias, or other sources of potentially life threatening problems such as deep venous thrombus formation causing pulmonary embolism, myocardial arrhythmias and infarctions, and even . After careful consideration of all their options, the patient and family appeared to understand and wished to proceed with surgery. DESCRIPTION OF PROCEDURE: After obtaining informed consent, the patient was brought into the operating room and was placed in a normal supine position, where successful general endotracheal tube anesthesia was performed. The patient 's abdominal skin was prepped and draped, from the nipple line down to the level of the groins, in the usual sterile fashion. Intravenous access was already in place, and appropriately chosen and dosed prophylactic intravenous antimicrobials were administered. We then called a surgical time-out where patient's identification, date of , nature of the operation, allergies, presence of intravenous antimicrobials, presence of needed equipment, and any other concerns were reviewed and agreed upon by all members of the operating room team. We then started the operation by placing a 5-mm skin incision in the right- upper quadrant, subcostal midclavicular line, and introduced a 5-mm [employer] trocar into the peritoneal space, visualizing all the layers of the abdominal wall as we entered. Note that there was no indication of any injury to underlying structures once we entered the peritoneum. We insufflated the abdominal cavity to a maximum pressure of 15 mmHg, again, confirmed lack of any injury to underlying structures prior to visualizing the rest of the abdominal cavity. We could not see the fundus of the gallbladder. There was no evidence of malignancy. No evidence of calcifications or significant issues with other abnormalities. There was significant amount of adhesions in the right upper quadrant under the liver. Liver appeared to be significantly steatotic. With this information, we went a head and placed the other trocars under direct visualization, after injecting their sites with 0.25% Marcaine with epinephrine , placing a 5-mm trocar in the umbilical midline area, a 5-mm trocar in the right anterior axillary line, and a 12-mm trocar in the midline subxiphoid region. With our instruments in place, we had excellent visualization and access to the right-upper quadrant. We then we grasped the fundus of the gallbladder and pointed up towards the right-upper quadrant. There was significant amount of omental adhesions onto the infundibulum which we took down with judicious use of cautery, as well as meticulous blunt dissection. We were then able to grasp the infundibulum, but were not able to pull it out in order to expose the critical triangle of Calot given the amount of scarring in the region. We placed our usual serosal cuts along the long axis of the gallbladder 1 cm away from its attachment to the liver bed up towards the fundus, and then joined these 2 lines under the infundibulum, taking care not to deliver any energy to underlying structures. Because of the significant amount of inflammation in the triangle of Calot low and to maximize the degree of safety of the operation, I decided to take the gallbladder top-down which we accomplished with cautery. This was very challenging and most of the blood loss during the operation came from this phase. This was also the time of the operation were significantly more than normal amount of work had to be performed and the degree of complexity of the case increased. We then performed meticulous dissection to attempt to identify and circumferentially isolate both the cystic duct and cystic artery. This proved to be rather challenging again. I believe that I had the cystic artery within a pedicle of tissue that was going to the gallbladder on the superior aspect of the dissection. We also had the area that appeared to be the cystic duct going into the infundibulum in the more posterior section of this. Note that the gallbladder was completely taken off the gallbladder bed and these were the only 2 structures going into the gallbladder. Since I was sure that these represented the cystic duct and cystic artery, I decided to transect across them using one firing of the [place] stapler (60 mm, vascular (white) load) each. We then made the 12 mm trocar site larger using cautery and delivered the gallbladder out inside of an EndoCatch bag through the 12-mm trocar site without contaminating the wound. One large stone had to be crushed the process of taking the gallbladder out. The gallbladder was sent to Pathology for evaluation. Returning to the abdominal cavity, we used a Bard core needle liver biopsy to perform biopsy of segment 5 of the liver and sent 3 cores to pathology for permanent sections, and then we ensured that there was adequate hemostasis and bile-stasis prior to placing a 19 [place] Ac drain through the right anterior flank 5 mm trocar site and placed the end in the gallbladder fossa since the operation was so difficult and I wanted to make sure that there is no other issues postoperatively in the gallbladder fossa, fix the drain to the skin using 2-0 nylon suture, removal of all of or equipment, including the pneumoperitoneum, and then reapproximating the 12-mm trocar site with 4 figure- of-eight 0 Vicryl sutures, followed by washing the wounds with copious amounts of normal saline, and then reapproximating the skin using interrupted 4-0 Monocryl sutures. Light dressing was then applied. At the end of the operation, both the sponge count and needle count were reportedly correct x2. The patient tolerated the procedure without any reported complications. ESTIMATED BLOOD LOSS: 150 mL BLOOD OR BLOOD PRODUCT TRANSFUSIONS: None to my knowledge. SPECIMENS: 1. Gallbladder 2. Core needle liver biopsy, segment 5, 3 cores COMPLICATIONS: None. DISPOSITION: Recovery area. Disclaimer: Inadvertent spelling and grammatical errors are likely due to EHR/ dictation software use and do not reflect on the quality of delivered patient care. GREG LAWRENCE M.D. Dec 13, 2016 18:23
[2016-12-13] MEDS ORDERED: NA PHOSPHATE/BIPHOS 133 ML ENEMA PR PRN (18:30)
[2016-12-13] MEDS ORDERED: HYDROmorphONE 1 MG/ML SYG IV PRN (18:30)
[2016-12-13] MEDS ORDERED: HYDROCODONE/APAP (5/325) TAB PO PRN ×2 (18:30)
[2016-12-13] MEDS ORDERED: BISACODYL 10 MG SUPP PR PRN (18:30)
[2016-12-13] MEDS ORDERED: DOCUSATE SODIUM 100 MG CAP PO PRN (18:30)
[2016-12-13] MEDS ORDERED: FENTAnyl 50 MCG/ML VIAL ONE (18:39)
[2016-12-13] MEDS: FENTAnyl 50 MCG/ML VIAL IV PRN ×5 (18:52→20:43)
[2016-12-13] MEDS: HYDROmorphONE (0.2 MG/ML) 10ML SYG IV PRN ×2 (19:27→20:43)
[2016-12-13] MEDS: D5W-0.45 NACL + KCL 20 MEQ 1,000 ML IV SCH (20:55)
[2016-12-13] MEDS: HYDROmorphONE 1 MG/ML SYG IV PRN (21:04)
[2016-12-13 22:48] LABS: ABNORMAL IP MESSAGE 1; HEMATOCRIT 45.8 % (42.0-52.0); HEMOGLOBIN 15.4 g/dl (14.0-18.0); MEAN CORPUSCULAR HEMOGLOBIN 31.2 pg (29.0-33.0); MEAN CORPUSCULAR HGB CONC 33.6 g/dl (32.0-37.0); MEAN CORPUSCULAR VOLUME 92.7 fl (82.0-101.0); MEAN PLATELET VOLUME 10.5 fl (7.4-10.4); PLATELET COUNT 200 10^3/UL (140-415); POSITIVE DIFF @See below; RED BLOOD COUNT 4.94 10^6/ul (4.70-6.10); RED CELL DISTRIBUTION WIDTH 12.2 % (11.5-14.5); WHITE BLOOD COUNT 11.4 10^3/ul (4.8-10.8)
[2016-12-13 23:45] LABS: BASOPHILS % 0.1 % (0.0-2.0); EOSINOPHILS % 0.1 % (0.0-7.0); LYMPHOCYTES # 0.5 10^3/ul (0.8-2.9); LYMPHOCYTES % 4.1 % (15.0-51.0); MONOCYTE # 0.1 10^3/ul (0.3-0.9); NEUTROPHIL # 10.7 10^3/ul (1.6-7.5); NEUTROPHILS % 93.6 % (39.0-77.0)
[2016-12-14] VITALS: BP 124/61; RESP 18
[2016-12-14] MEDS: HYDROmorphONE 1 MG/ML SYG IV PRN ×4 (00:07→18:24)
[2016-12-14 05:15] VITALS: BP 120/82; PULSE 83; RESP 19
[2016-12-14 06:06] LABS: BASOPHILS % 0.1 % (0.0-2.0); HEMOGLOBIN 15.2 g/dl (14.0-18.0); LYMPHOCYTES # 0.7 10^3/ul (0.8-2.9); LYMPHOCYTES % 6.9 % (15.0-51.0); MEAN CORPUSCULAR HEMOGLOBIN 30.2 pg (29.0-33.0); MEAN CORPUSCULAR VOLUME 91.5 fl (82.0-101.0); MEAN PLATELET VOLUME 10.8 fl (7.4-10.4); MONOCYTE # 0.3 10^3/ul (0.3-0.9); MONOCYTES % 3.4 % (0.0-11.0); NEUTROPHIL # 8.9 10^3/ul (1.6-7.5); NEUTROPHILS % 88.9 % (39.0-77.0); PLATELET COUNT 220 10^3/UL (140-415); RED BLOOD COUNT 5.03 10^6/ul (4.70-6.10); RED CELL DISTRIBUTION WIDTH 12.3 % (11.5-14.5)
[2016-12-14 06:35] LABS: INR 1.09; PROTIME 14.1 Sec (12.2-14.2); PT RATIO 1.1
[2016-12-14 06:36] LABS: PARTIAL THROMBOPLASTIN TIME 27.7 Sec (25.0-35.0)
[2016-12-14 06:52] LABS: ALBUMIN/GLOBULIN RATIO 1.05; BILIRUBIN,DIRECT 1.8 mg/dl (0.00-0.20); BILIRUBIN,INDIRECT 0.6 mg/dl (0-1.1); BILIRUBIN,TOTAL 2.4 mg/dl (0.2-1.3); CALCIUM 8.6 mg/dl (8.4-10.2); CREATININE 0.77 mg/dl (0.61-1.24); POTASSIUM 4.6 mmol/L (3.5-5.1); TOTAL PROTEIN 7.8 g/dl (6.1-8.1)
[2016-12-14 07:00] VITALS: BP 119/76; RESP 18
[2016-12-14 07:18] LABS: CALCIUM 8.9 mg/dl (8.4-10.2); MAGNESIUM 1.9 mg/dl (1.7-2.5); PHOSPHORUS 4.3 mg/dl (2.5-4.9)
[2016-12-14] MEDS: D5W-0.45 NACL + KCL 20 MEQ 1,000 ML IV SCH ×2 (07:23→17:19)
[2016-12-14] MEDS: FAMOTIDINE 20 MG INJ IV SCH ×2 (08:09→21:44)
[2016-12-14] MEDS: ENOXAPARIN 40 MG/0.4 ML SYG SC SCH (08:16)
[2016-12-14 14:00] VITALS: BP 117/71; RESP 18
--- NOTE | 2016-12-14 14:28 | PN ---
Date/Time of Note Date/Time of Note DATE: 12/14/16 TIME: 14:25 Assessment/Plan VTE Prophylaxis VTE Prophylaxis Intervention: LMWH Lines/Catheters IV C[facility]ter Type (from [facility]): Peripheral IV Urinary Cath still in place: No Assessment/Plan Assessment/Plan 1. Acute cholecystitis, cholelithiasis, s/p lap cholecystectomy on 12/13/2016, high LFTs, repeat in am, HIDA scan if higher 2. Transaminitis, higher today, follow up with LFTs 3. Obesity 4. H/o appendectomy Subjective 24 Hr Interval Summary Free Text/Dictation abdominal pain needs frequent pain medication, no vomiting, no fever Exam/Review of Systems Vital Signs Vitals Vital Signs Date Time Temp Pulse Resp B/P Pulse Ox O2 Delivery O2 Flow Rate FiO2 12/14/16 07:00 98.7 76 18 119/76 95 12/14/16 05:15 Nasal Cannula 2.0 Intake and Output 12/13/16 12/13/16 12/14/16 15:00 23:00 07:00 Intake Total 700 ml 1500 ml 900 ml Output Total 170 ml 1445 ml Balance 700 ml 1330 ml -545 ml Exam Constitutional: alert, obese, oriented, well developed Psych: nl mood/affect, no complaints Head: atraumatic, normocephalic Eyes: EOMI, PERRL, nl conjunctiva, nl lids ENMT: nl external ears & nose, nl lips & teeth, nl nasal mucosa & septum Neck: non-tender, supple Respiratory: clear to auscultation, normal air movement, No congested cough, No crackles/rales, No diminished breath sounds, No intercostal retraction, No labored breathing, No other, No respirations, No tactile fremitus, No wheezing Cardiovascular: nl pulses, regular rate and rhythm, No S3, No S4, No bruits, No diastolic murmur, No edema, No gallop, No irregular rhythm, No jugular venous distention (JVD), No murmurs/extra sounds, No other, No rub, No systolic murmur Gastrointestinal: distended, tender (right upper abdominal tenderness) Musculoskeletal: nl extremities to inspection Extremities: normal pulses, No calf tenderness, No clubbing, No cyanosis, No edema, No other, No palpable cord, No pitting pedal edema, No tenderness 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, nl mental status, nl speech, nl strength Skin: nl turgor Lymph: nl lymph nodes Results Result Diagram: 12/14/16 0453 12/14/16 0453 Results 24 hrs Laboratory Tests Test 12/13/16 22:33 12/14/16 04:53 White Blood Count 11.4 #H 10.0 Red Blood Count 4.94 5.03 Hemoglobin 15.4 15.2 Hematocrit 45.8 46.0 Mean Corpuscular Volume 92.7 91.5 Mean Corpuscular Hemoglobin 31.2 30.2 Mean Corpuscular Hemoglobin Concent 33.6 33.0 Red Cell Distribution Width 12.2 12.3 Platelet Count 200 220 Mean Platelet Volume 10.5 H 10.8 H Neutrophils % 93.6 H 88.9 H Lymphocytes % 4.1 L 6.9 L Monocytes % 1.0 3.4 Eosinophils % 0.1 0.0 Basophils % 0.1 0.1 Nucleated Red Blood Cells % 0.0 0.0 Neutrophils # 10.7 H 8.9 H Lymphocytes # 0.5 L 0.7 L Monocytes # 0.1 L 0.3 Eosinophils # 0.0 0.0 Basophils # 0.0 0.0 Nucleated Red Blood Cells # 0.0 0.0 Prothrombin Time 14.1 Prothrombin Time Ratio 1.1 INR International Normalized Ratio 1.09 Activated Partial Thromboplast Time 27.7 Sodium Level 134 L Potassium Level 4.6 Chloride Level 97 Carbon Dioxide Level 27 Anion Gap 15 Blood Urea Nitrogen 9 Creatinine 0.77 Glucose Level 133 # Lactic Acid Level 1.5 Calcium Level 8.6 Phosphorus Level 4.3 Magnesium Level 1.9 Total Bilirubin 2.4 H Direct Bilirubin 1.80 #H Indirect Bilirubin 0.6 Aspartate Amino Transf (AST/SGOT) 436 #H Alanine Aminotransferase (ALT/SGPT) 607 H Alkaline Phosphatase 191 H B-Type Natriuretic Peptide 63 Total Protein 7.8 Albumin 4.0 Globulin 3.80 H Albumin/Globulin Ratio 1.05 Medications Medications Current Medications Ondansetron HCl (Zofran Inj) 4 mg Q6H PRN IV NAUSEA AND/OR VOMITING; Start at 01:00 Acetaminophen (Tylenol Tab) 650 mg Q6H PRN PO PAIN LEVEL 1-3 OR FEVER; Start at 01:00 Famotidine 20 mg 20 mg Q12 IV Last administered on 12/14/16 08:09; Admin Dose 20 MG; Start 12/12/16 at 09:00 Potassium Chloride/Dextrose/ Sod Cl (D5-1/2ns + KCl 20 Meq) 1,000 ml @ 100 mls/ hr Q10H IV Last administered on 12/14/16 07:23; Admin Dose 100 MLS/HR; Start 12/13/16 at 18:23 Acetaminophen/ Hydrocodone Bitart ([place] (5/325)) 1 tab Q4H PRN PO PAIN LEVEL 4 -7; Start 12/13/16 at 18:30 Acetaminophen/ Hydrocodone Bitart ([place]lementon (5/325)) 2 tab Q4H PRN PO PAIN LEVEL 7 -10; Start 12/13/16 at 18:30 Hydromorphone HCl (Dilaudid) 0.5 mg Q2 PRN IV PAIN; Start 12/13/16 at 18:30 Hydromorphone HCl (Dilaudid) 1 mg Q2 PRN IV PAIN Last administered on 13:00; Admin Dose 1 MG; Start 12/13/16 at 18:30 Docusate Sodium (Colace) 100 mg BID PRN PO CONSTIPATION; Start 12/13/16 at 18: 30 Bisacodyl (Dulcolax Supp) 10 mg BID PRN ND CONSTIPATION; Start 12/13/16 at 18: 30 Sodium Biphosphate/ Sodium Phosphate (Fleet Enema) 133 ml BID PRN ND CONSTIPATION; Start 12/13/16 at 18:30 Enoxaparin Sodium (Lovenox) 40 mg DAILY SC Last administered on 12/14/16 08:16 ; Admin Dose 40 MG; Start 12/14/16 at 09:00 TODD QUESADA MD Dec 14, 2016 14:28
[2016-12-14] MEDS: PIPER-TAZO 3.375 GM IV (PMX) 100 ML IVPB SCH ×2 (14:58→21:44)
--- NOTE | 2016-12-14 18:11 | PN ---
Date/Time of Note Date/Time of Note DATE: 12/14/16 TIME: 18:11 Assessment/Plan Lines/Catheters IV Catheter Type (from Nrs): Peripheral IV Dickinson in Place (from Nrs): No Assessment/Plan Assessment/Plan [facility] Progress Note Date of Service: 12/14/2016 Place of service: [facility] Today's Assessment & Plan: Overall stable and doing relatively well. Patient's abnormal LFTs are somewhat expected given the degree of steatosis and the severity of the illness prior to the operation. I am not concerned about bile duct injury or other surgical complications, but the patient is still at risk for retained common bile duct stones and for this reason, and for degree of severity of his preoperative condition, he needs to stay in house and be carefully observed for now. No indication for acute surgical intervention. Explained to patient and answered all questions. Patient appeared to understand and agreed with plans. With above assessment, I've recommended the followin. Keep in-house 2. Increase activity 3. Increase incentive spirometry 4. Labs in a.m. including LFTs Nature of presenting problem: High severity Please note that, given the multiple number of diagnoses or management options, the moderate amount and/or complexity of data needed to be reviewed, and I risk of complications and/or morbidity or mortality, this qualifies as moderate complexity type of decision-making. Disclaimers: 1. Inadvertent spelling and grammatical errors are likely due to electronic health record (EHR)/dictation software use and do not reflect on the quality of delivered patient care. 2. The electronic timestamp recorded on this note does not necessarily reflect the actual date and time of the visit. 3. Portions of this note are created through electronic templates and computer algorithms that may bring in information either from the system or from other physicians and providers that are outside of my control and may not be always accurate. In general (but not always) this happens either in the beginning or at the end of the note. My portions of the gathered data are generally dictated in 1 continuous block of text and entered into one field in the EHR. 4. There may be other unanticipated errors in the note that are outside of my control. I can only attest to the portions of the note that I have created. Updated clinical summary: Very pleasant 41-year-old gentleman with known history of cholelithiasis and BMI 38.2, admitted to the emergency department at [facility] on 12/11/2016 with cholelithiasis, acute cholecystitis, and possible choledocholithiasis. Comorbidities: 1. Severe acute on chronic cholecystitis with known cholelithiasis. S/p an otherwise uncomplicated but challenging laparoscopic cholecystectomy with core needle liver biopsy at [facility] 12/13/16 with findings of severe acute on chronic cholecystitis and significant hepatic steatosis. 2. BMI 38.2 3. Hepatic steatosis 4. Appendectomy Subjective: No major events or complaints; no major abd pain and under control with medications; no n/v/d; no sob or cp; - flatus; - BM; - activity Objective: Vitals: See below I's & O's: See below Exam: GENERAL: On exam, the patient was lying in bed and appeared to be comfortable and in no acute distress. ABDOMEN: Soft, nontender and nondistended. Incision dressings are clean, dry and intact without any evidence of underlying erythema, edema, discharge, or hernia. Surgical drain ss. There are no peritoneal signs or guarding. SKIN: Skin appears to be pink and feels warm to touch. NEUROLOGIC: Patient is awake, alert, and follows commands appropriately. Labs: See below Exam/Review of Systems Vital Signs Vitals Vital Signs Date Time Temp Pulse Resp B/P Pulse Ox O2 Delivery O2 Flow Rate FiO2 12/14/16 14:00 98.7 83 18 117/71 94 12/14/16 05:15 Nasal Cannula 2.0 Intake and Output 12/13/16 12/13/16 12/14/16 15:00 23:00 07:00 Intake Total 700 ml 1500 ml 900 ml Output Total 170 ml 1445 ml Balance 700 ml 1330 ml -545 ml Results Result Diagram: 12/14/16 0453 12/14/16 0453 GREG LAWRENCE M.D. Dec 14, 2016 18:11
[2016-12-14 19:37] VITALS: BP 127/76; RESP 18
[2016-12-15] MEDS: D5W-0.45 NACL + KCL 20 MEQ 1,000 ML IV SCH ×3 (00:23→22:34)
[2016-12-15 02:44] VITALS: BP 116/73; RESP 18
[2016-12-15] MEDS: PIPER-TAZO 3.375 GM IV (PMX) 100 ML IVPB SCH ×3 (05:39→22:34)
[2016-12-15 06:19] LABS: ALBUMIN 4.1 g/dl (3.3-4.9); ALBUMIN/GLOBULIN RATIO 1.05; BILIRUBIN,DIRECT 2.7 mg/dl (0.00-0.20); BILIRUBIN,INDIRECT 0.9 mg/dl (0-1.1); BILIRUBIN,TOTAL 3.6 mg/dl (0.2-1.3); CALCIUM 8.7 mg/dl (8.4-10.2); CREATININE 0.8 mg/dl (0.61-1.24); POTASSIUM 4.2 mmol/L (3.5-5.1)
[2016-12-15] MEDS: HYDROmorphONE 1 MG/ML SYG IV PRN ×3 (07:29→22:31)
[2016-12-15 08:23] VITALS: BP 134/82; RESP 18
[2016-12-15] MEDS: FAMOTIDINE 20 MG INJ IV SCH ×2 (08:36→22:34)
[2016-12-15] MEDS: ENOXAPARIN 40 MG/0.4 ML SYG SC SCH (08:42)
--- NOTE | 2016-12-15 12:10 | CONS ---
Date/Time of Note Date/Time of Note DATE: 12/15/16 TIME: 12:02 Assessment/Plan Assessment/Plan Additional Assessment/Plan Assessment: * Abnormal liver function tests preceding cholecystectomy * Preop MRI/MRCP negative * hepatitis serology negative * Cholelithiasis/cholecystitis post-laparoscopic cholecystectomy * History of binge ethanol abuse * Obesity Plan: * HIDA scan * Obtain MRI MRCP * LANDON, ASMA, ferritin, iron studies, CMV and EBV serologies * Consider ERCP pending review of imaging Consultation Date/Type/Reason Admit Date/Time Dec 11, 2016 at 23:05 Date of Consultation: Dec 15, 2016 Type of Consultation: GI Reason for Consultation Abnormal liver function tests Hx of Present Illness 41-year-old male underwent laparoscopic cholecystectomy after workup disclosed no evidence of choledocholithiasis and evidence of cholelithiasis/ cholecystitis. Of note the patient's liver function tests were abnormal prior to surgery. The patient does admit binge alcohol abuse. Hepatitis serology has been negative. Postoperatively there is slight increase in bilirubin and AST/ALT. The patient however feels much improved with little abdominal pain if any. There is no fever, chills or diaphoresis. HIDA scan has been requested. The patient did have an MRI prior to surgery and this will need to be repeated. I will expand the workup for hepatocellular processes as the pattern appears to suggest hepatocellular disease. Constitutional: improved, no complaints Eyes: no complaints ENT: no complaints Respiratory: no complaints Cardiovascular: no complaints Gastrointestinal: other (See HPI) Genitourinary: no complaints Musculoskeletal: no complaints Skin: no complaints Neurologic: no complaints Endocrine: no complaints Lymphatic: no complaints Psychological: nl mood/affect, no complaints Immunologic: no complaints Past Medical History * Cholelithiasis * Post laparoscopic c cholecystectomy Past Surgical History Past Surgical Hx: appendectomy, cholecystectomy Family History Significant Family History: no pertinent family hx Social History Alcohol Use: other (Binge heavy ethanol abuse) Smoking Status: Never smoker Drug Use: none Exam/Review of Systems Vital Signs Vitals Vital Signs Date Time Temp Pulse Resp B/P Pulse Ox O2 Delivery O2 Flow Rate FiO2 12/15/16 08:23 98.8 75 18 134/82 93 12/14/16 05:15 Nasal Cannula 2.0 Intake and Output 12/14/16 12/14/16 12/15/16 15:00 23:00 07:00 Intake Total 1780 ml 1300 ml Output Total 1340 ml Balance 440 ml 1300 ml Exam PHYSICAL EXAMINATION: GENERAL: Well developed, well nourished, alert & oriented x 3, in no acute distress SKIN: Mild jaundice no lesions, no stigmata chronic liver disease, no evidence of bleeding diathesis LYMPHATIC: No palpable lymphadenopathy. HEAD: Normocephalic, atraumatic, no tenderness. EYES: Pupils equal reactive to light and accommodation, full extraocular movements, sclera clear, non-icteric, no discharge. EARS/NOSE AND THROAT: Ears normal, nose normal, oropharynx normal, oral membranes well hydrated without lesions. NECK: Supple, no masses, thyroid normal, JVP within normal limits, carotids normal without bruits. CHEST: Inspection within normal limits, breasts grossly normal. CARDIOVASCULAR: Heart: Regular rate and rhythm, no murmurs, gallops or rubs. Peripheral pulses present within normal limits, no cyanosis, clubbing or edemas. No pulsatile abdominal mass RESPIRATORY: Lungs clear to auscultation and percussion, no wheezing, no rubs GASTROINTESTINAL AND LIVER: Abdomen: Soft, mild epigastric and right upper quadrant tenderness, moderately distended, no hernias, no masses, no organomegaly, no ascites, no guarding, no rebound tenderness, normoactive bowel sounds. Rectal: Deferred. GENITOURINARY: [Male genitalia within normal limits.] MUSCULO-SKELETAL: Gait and station within normal limits, range of motion adequate. [NEUROLOGIC: Cranial nerves II-XII intact, Motor within normal limits, Sensory within normal limits. Reflexes within normal limits. PSYCHIATRIC: Alert & oriented x 3, mood/affect/judgement adequate] Results Result Diagram: 12/14/16 0453 12/15/16 0424 Results 24 hrs Laboratory Tests Test 12/15/16 04:24 Sodium Level 136 Potassium Level 4.2 Chloride Level 100 Carbon Dioxide Level 27 Anion Gap 13 Blood Urea Nitrogen 8 Creatinine 0.80 Glucose Level 133 Calcium Level 8.7 Total Bilirubin 3.6 H Direct Bilirubin 2.70 H Indirect Bilirubin 0.9 Aspartate Amino Transf (AST/SGOT) 466 H Alanine Aminotransferase (ALT/SGPT) 714 H Alkaline Phosphatase 237 H Total Protein 8.0 Albumin 4.1 Globulin 3.90 H Albumin/Globulin Ratio 1.05 Medications Medications Current Medications Ondansetron HCl (Zofran Inj) 4 mg Q6H PRN IV NAUSEA AND/OR VOMITING; Start at 01:00 Acetaminophen (Tylenol Tab) 650 mg Q6H PRN PO PAIN LEVEL 1-3 OR FEVER; Start at 01:00 Famotidine 20 mg 20 mg Q12 IV Last administered on 12/15/16 08:36; Admin Dose 20 MG; Start 12/12/16 at 09:00 Potassium Chloride/Dextrose/ Sod Cl (D5-1/2ns + KCl 20 Meq) 1,000 ml @ 100 mls/ hr Q10H IV Last administered on 12/15/16 03:43; Admin Dose 100 MLS/HR; Start 12/13/16 at 18:23 Acetaminophen/ Hydrocodone Bitart ([place] (5/325)) 1 tab Q4H PRN PO PAIN LEVEL 4 -7; Start 12/13/16 at 18:30 Acetaminophen/ Hydrocodone Bitart ([place] (5/325)) 2 tab Q4H PRN PO PAIN LEVEL 7 -10; Start 12/13/16 at 18:30 Hydromorphone HCl (Dilaudid) 0.5 mg Q2 PRN IV PAIN Last administered on 03:40; Admin Dose 0.5 MG; Start 12/13/16 at 18:30 Hydromorphone HCl (Dilaudid) 1 mg Q2 PRN IV PAIN Last administered on 07:29; Admin Dose 1 MG; Start 12/13/16 at 18:30 Docusate Sodium (Colace) 100 mg BID PRN PO CONSTIPATION; Start 12/13/16 at 18: 30 Bisacodyl (Dulcolax Supp) 10 mg BID PRN [place] CONSTIPATION; Start 12/13/16 at 18: 30 Sodium Biphosphate/ Sodium Phosphate (Fleet Enema) 133 ml BID PRN [place] CONSTIPATION; Start 12/13/16 at 18:30 Enoxaparin Sodium 40 mg 40 mg DAILY SC Last administered on 12/15/16 08:42; Admin Dose 40 MG; Start 12/14/16 at 09:00 Piperacillin Sod/ Tazobactam Sod (Zosyn 3.375gm/ 100 ml (Pmx)) 100 ml @ 200 mls /hr Q8 IVPB Last administered on 12/15/16 05:39; Admin Dose 200 MLS/HR; Start 12/14/16 at 15:00 MARLO GARNER MD Dec 15, 2016 12:10
[2016-12-15 13:20] VITALS: BP 114/64; RESP 18
--- NOTE | 2016-12-15 14:33 | PN ---
Date/Time of Note Date/Time of Note DATE: 12/15/16 TIME: 13:25 Assessment/Plan Lines/Catheters IV Catheter Type (from [facility]): Peripheral IV Dickinson in Place (from [facility]): No Assessment/Plan Assessment/Plan [facility] Progress Note Date of Service: 12/15/2016 Place of service: [facility] Today's Assessment & Plan: Overall stable, but with rising LFTs. Low likelihood of bile duct injury or transection and more likely that this is issue with common bile duct stone and needs to be further evaluated. I ordered a HIDA scan and I left a message with Dr. Pierre for consideration for ERCP. Awaiting above evaluation and recommendations. No indication for acute surgical intervention. With above assessment, I've recommended the followin. HIDA scan 2. Increase activity 3. Increase incentive spirometry 4. Labs in a.m. including LFTs 5. Follow-up with Dr. Pierre's recommendations Nature of presenting problem: High severity Please note that, given the multiple number of diagnoses or management options, the moderate amount and/or complexity of data needed to be reviewed, and I risk of complications and/or morbidity or mortality, this qualifies as moderate complexity type of decision-making. Disclaimers: 1. Inadvertent spelling and grammatical errors are likely due to electronic health record (EHR)/dictation software use and do not reflect on the quality of delivered patient care. 2. The electronic timestamp recorded on this note does not necessarily reflect the actual date and time of the visit. 3. Portions of this note are created through electronic templates and computer algorithms that may bring in information either from the system or from other physicians and providers that are outside of my control and may not be always accurate. In general (but not always) this happens either in the beginning or at the end of the note. My portions of the gathered data are generally dictated in 1 continuous block of text and entered into one field in the EHR. 4. There may be other unanticipated errors in the note that are outside of my control. I can only attest to the portions of the note that I have created. Updated clinical summary: Very pleasant 41-year-old gentleman with known history of cholelithiasis and BMI 38.2, admitted to the emergency department at [facility] on 12/11/2016 with cholelithiasis, acute cholecystitis, and possible choledocholithiasis. Comorbidities: 1. Severe acute on chronic cholecystitis with known cholelithiasis. S/p an otherwise uncomplicated but challenging laparoscopic cholecystectomy with core needle liver biopsy at [facility] 12/13/16 with findings of severe acute on chronic cholecystitis and significant hepatic steatosis. 2. BMI 38.2 3. Hepatic steatosis 4. Appendectomy Subjective: No major reported events or complaints; no major reported abd pain and under control with medications Objective: Vitals: See below I's & O's: See below Exam: Patient not in his room Labs: See below Exam/Review of Systems Vital Signs Vitals Vital Signs Date Time Temp Pulse Resp B/P Pulse Ox O2 Delivery O2 Flow Rate FiO2 12/15/16 08:23 98.8 75 18 134/82 93 12/14/16 05:15 Nasal Cannula 2.0 Intake and Output 12/14/16 12/14/16 12/15/16 15:00 23:00 07:00 Intake Total 1780 ml 1300 ml Output Total 1340 ml Balance 440 ml 1300 ml Results Result Diagram: 12/14/16 0453 12/15/16 0424 GREG LAWRENCE M.D. Dec 15, 2016 14:33
--- NOTE | 2016-12-15 18:16 | PN ---
Date/Time of Note Date/Time of Note DATE: 12/15/16 TIME: 18:15 Assessment/Plan VTE Prophylaxis VTE Prophylaxis Intervention: SCD's Lines/Catheters Urinary Cath still in place: No Assessment/Plan Assessment/Plan 1. Acute cholecystitis, cholelithiasis, s/p lap cholecystectomy on 12/13/2016, high LFTs, MRCP planned for today 2. Transaminitis, higher today, follow up with LFTs 3. Obesity 4. H/o appendectomy Subjective 24 Hr Interval Summary Free Text/Dictation plan for MRCP today c/o right pain G surgery and GI following Exam/Review of Systems Vital Signs Vitals Vital Signs Date Time Temp Pulse Resp B/P Pulse Ox O2 Delivery O2 Flow Rate FiO2 12/15/16 13:20 98.1 79 18 114/64 92 12/14/16 05:15 Nasal Cannula 2.0 Intake and Output 12/14/16 12/14/16 12/15/16 15:00 23:00 07:00 Intake Total 1780 ml 1300 ml Output Total 1340 ml Balance 440 ml 1300 ml Exam Constitutional: alert ENMT: nl external ears & nose Neck: non-tender, supple Respiratory: clear to auscultation, normal air movement Cardiovascular: nl pulses, regular rate and rhythm Gastrointestinal: non-tender, soft Musculoskeletal: nl extremities to inspection, nl gait and stance Neurological: BEEKEEPER FARMER II-XII intact, nl mental status, nl speech, nl strength Results Result Diagram: 12/14/16 0453 12/15/16 0424 Results 24 hrs Laboratory Tests Test 12/15/16 04:24 Sodium Level 136 Potassium Level 4.2 Chloride Level 100 Carbon Dioxide Level 27 Anion Gap 13 Blood Urea Nitrogen 8 Creatinine 0.80 Glucose Level 133 Calcium Level 8.7 Total Bilirubin 3.6 H Direct Bilirubin 2.70 H Indirect Bilirubin 0.9 Aspartate Amino Transf (AST/SGOT) 466 H Alanine Aminotransferase (ALT/SGPT) 714 H Alkaline Phosphatase 237 H Total Protein 8.0 Albumin 4.1 Globulin 3.90 H Albumin/Globulin Ratio 1.05 Medications Medications Current Medications Ondansetron HCl (Zofran Inj) 4 mg Q6H PRN IV NAUSEA AND/OR VOMITING; Start at 01:00 Acetaminophen (Tylenol Tab) 650 mg Q6H PRN PO PAIN LEVEL 1-3 OR FEVER; Start at 01:00 Famotidine 20 mg 20 mg Q12 IV Last administered on 12/15/16 08:36; Admin Dose 20 MG; Start 12/12/16 at 09:00 Potassium Chloride/Dextrose/ Sod Cl (D5-1/2ns + KCl 20 Meq) 1,000 ml @ 100 mls/ hr Q10H IV Last administered on 12/15/16 03:43; Admin Dose 100 MLS/HR; Start 12/13/16 at 18:23 Acetaminophen/ Hydrocodone Bitart ([place] (5/325)) 1 tab Q4H PRN PO PAIN LEVEL 4 -7; Start 12/13/16 at 18:30 Acetaminophen/ Hydrocodone Bitart ([place] (5/325)) 2 tab Q4H PRN PO PAIN LEVEL 7 -10; Start 12/13/16 at 18:30 Hydromorphone HCl (Dilaudid) 0.5 mg Q2 PRN IV PAIN Last administered on 03:40; Admin Dose 0.5 MG; Start 12/13/16 at 18:30 Hydromorphone HCl (Dilaudid) 1 mg Q2 PRN IV PAIN Last administered on 15:33; Admin Dose 1 MG; Start 12/13/16 at 18:30 Docusate Sodium (Colace) 100 mg BID PRN PO CONSTIPATION; Start 12/13/16 at 18: 30 Bisacodyl (Dulcolax Supp) 10 mg BID PRN [place] CONSTIPATION; Start 12/13/16 at 18: 30 Sodium Biphosphate/ Sodium Phosphate (Fleet Enema) 133 ml BID PRN OR CONSTIPATION; Start 12/13/16 at 18:30 Enoxaparin Sodium 40 mg 40 mg DAILY SC Last administered on 12/15/16 08:42; Admin Dose 40 MG; Start 12/14/16 at 09:00 Piperacillin Sod/ Tazobactam Sod (Zosyn 3.375gm/ 100 ml (Pmx)) 100 ml @ 200 mls /hr Q8 IVPB Last administered on 12/15/16 15:30; Admin Dose 200 MLS/HR; Start 12/14/16 at 15:00 CARLOS VELEZ MD Dec 15, 2016 18:16
--- NOTE | 2016-12-15 18:40 | RADRPT ---
PROCEDURE: MRCP. CLINICAL INDICATION: Right upper quadrant abdomen pain. Abnormal liver function tests. Jaundice. C holecystectomy 12/13/2016. TECHNIQUE: MRCP was performed. The following sequences were obtained: Three plane gradient echo localizers, coronal gradient echo images, breath hold axial T2-weighted fat saturation images, lul nal T2-weighted images, axial 3-D LAVA images, axial T2-weighted breath hold fast spin echo images, and 3-D coronal rotating MIP images of the biliary tree. COMPARISON: MRCP dated 12/12/2016 which demonstrated cholelithiasis, irregular gallbladder wall th ickening, thickening of the wall of the mid common bile duct, and nonspecific enlarged portocaval ly mph node measuring 1.2 cm in short axis. FINDINGS: The liver is normal in size. There is normal signal intensity within the liver. There is no focal hepatic lesion. The spleen is normal in size and homogeneous in signal intensity. The gallbladder is surgically absent. Mild inflammatory changes present in the gallbladder bed. The bile ducts are not dilated. There is no biliary filling defect. However, there is cutoff of the distal duct which may indicate a small distal stone. The pancreatic duct is not visualized. The kidneys are grossly normal. The abdominal aorta is not dilated. IMPRESSION: 1. Status post cholecystectomy with postoperative changes in the gallbladder bed. 2. Bile ducts are not dilated. 3. Cut off of the distal common bile duct which may indicate a small stone distally. If there is cl inical concern, correlation with ERCP is advised. 4. Otherwise unremarkable study. RPTAT: QQ .Nikhil Alves MD, MD Date Time Electronically viewed and signed by .Nikhil Alves MD, on 12/15/2016 18:40 .R/
[2016-12-15 19:55] VITALS: BP 118/67; RESP 18
[2016-12-15] MEDS ORDERED: INDOMETHACIN 50 MG SUPP PR ONE (23:30)
[2016-12-16] VITALS (14 sets, daily range): BP systolic 108–125; BP diastolic 58–80; PULSE 69–88; RESP 14–19
[2016-12-16 05:27] LABS: BASOPHIL # 0.1 10^3/ul (0.0-0.1); BASOPHILS % 0.7 % (0.0-2.0); EOSINOPHILS # 0.2 10^3/ul (0.0-0.5); EOSINOPHILS % 2.5 % (0.0-7.0); HEMATOCRIT 47.2 % (42.0-52.0); HEMOGLOBIN 15.5 g/dl (14.0-18.0); LYMPHOCYTES # 1.5 10^3/ul (0.8-2.9); LYMPHOCYTES % 22.2 % (15.0-51.0); MEAN CORPUSCULAR HEMOGLOBIN 30.2 pg (29.0-33.0); MEAN CORPUSCULAR HGB CONC 32.8 g/dl (32.0-37.0); MEAN PLATELET VOLUME 10.6 fl (7.4-10.4); MONOCYTE # 0.4 10^3/ul (0.3-0.9); NEUTROPHIL # 4.5 10^3/ul (1.6-7.5); NEUTROPHILS % 67.9 % (39.0-77.0); PLATELET COUNT 218 10^3/UL (140-415); RED BLOOD COUNT 5.13 10^6/ul (4.70-6.10); RED CELL DISTRIBUTION WIDTH 13.1 % (11.5-14.5); WHITE BLOOD COUNT 6.7 10^3/ul (4.8-10.8)
[2016-12-16 05:44] LABS: IRON 95 ug/dl (35-150)
[2016-12-16 05:49] LABS: ALANINE AMINOTRANSFERASE 616 IU/L (13-69); ALBUMIN 3.9 g/dl (3.3-4.9); ALKALINE PHOSPHATASE 230 IU/L (42-121); ANION GAP 13 (8-16); ASPARTATE AMINO TRANSFERASE 318 IU/L (15-46); BILIRUBIN,TOTAL 4.1 mg/dl (0.2-1.3); BLOOD UREA NITROGEN 10 mg/dl (7-20); CALCIUM 8.9 mg/dl (8.4-10.2); CARBON DIOXIDE 28 mmol/L (21-31); CHLORIDE 99 mmol/L (97-110); CREATININE 0.86 mg/dl (0.61-1.24); GLUCOSE 109 mg/dl (70-220); MAGNESIUM 1.9 mg/dl (1.7-2.5); PHOSPHORUS 4.8 mg/dl (2.5-4.9); POTASSIUM 4.1 mmol/L (3.5-5.1); SODIUM 136 mmol/L (135-144); TOTAL PROTEIN 7.8 g/dl (6.1-8.1)
[2016-12-16 05:53] LABS: INR 1.03; PROTIME 13.5 Sec (12.2-14.2); PT RATIO 1.1; TOTAL IRON BINDING CAPACITY 332 ug/dl (241-421)
[2016-12-16 05:54] LABS: PARTIAL THROMBOPLASTIN TIME 28.7 Sec (25.0-35.0)
[2016-12-16 05:55] LABS: B-TYPE NATRIURETIC PEPTIDE < 11 PG/ML (0-125)
[2016-12-16] MEDS: PIPER-TAZO 3.375 GM IV (PMX) 100 ML IVPB SCH ×3 (06:09→22:39)
[2016-12-16] MEDS: D5W-0.45 NACL + KCL 20 MEQ 1,000 ML IV SCH ×2 (06:23→08:09)
[2016-12-16] MEDS ORDERED: CEFAZOLIN 1 GM INJ ONE (07:00)
[2016-12-16] MEDS: FAMOTIDINE 20 MG INJ IV SCH ×2 (08:09→22:36)
--- NOTE | 2016-12-16 08:50 | RADRPT ---
AMENDMENT: 12/17/2016 1:17:53 PM Nubia Vasquez M.D There is also lack of visualization of the common bile duct and gastrointestinal activity, which may be indicative of a common bile duct obstruction. PROCEDURE: HIDA scan CLINICAL INDICATION: Abnormal LFTs, jaundice, status post cholecystectomy 12/13/2016, rule out bili izabella leak. TECHNIQUE: Following the intravenous injection of 8 mCi of Tc-99m mebrofenin, multiple images of t he abdomen were obtained up to 60-minutes post injection. COMPARISON: Same day MRI abdomen. FINDINGS: The liver is promptly visualized, demonstrates homogeneous distribution of radionuclide. No evidence of radiotracer outside of the biliary system to suggest biliary leak. IMPRESSION: No scintigraphic evidence of biliary leak. RPTAT: HH Physician Sebastian Date Time Electronically viewed and signed by Physician Sebastian on 12/17/2016 13:17 /
[2016-12-16] MEDS: ENOXAPARIN 40 MG/0.4 ML SYG SC SCH (09:00)
[2016-12-16] MEDS ORDERED: LIDOCAINE 2% (SDV) 5 ML INJ ONE (11:23)
[2016-12-16] MEDS ORDERED: PROPOFOL 20 ML ONE ×2 (11:23→12:57)
[2016-12-16] MEDS ORDERED: SUCCINYLCHOLINE CHLORIDE 100 MG/5 ML SYG IV ONE (11:23)
[2016-12-16] MEDS ORDERED: FENTAnyl 50 MCG/ML VIAL ONE (11:23)
[2016-12-16] MEDS ORDERED: MIDAZOLAM 1 MG/ML 2 ML INJ ONE (11:23)
[2016-12-16] MEDS ORDERED: MEPERIDINE 25 MG INJ IV PRN (11:30)
[2016-12-16] MEDS ORDERED: LABETALOL HCL 20MG INJ IV PRN (11:30)
[2016-12-16] MEDS ORDERED: PROCHLORPERAZINE 10 MG INJ IV PRN (11:30)
[2016-12-16] MEDS ORDERED: HYDROmorphONE (0.2 MG/ML) 10ML SYG IV PRN ×2 (11:30)
[2016-12-16] MEDS ORDERED: DIPHENHYDRAMINE 50 MG INJ IV PRN (11:30)
[2016-12-16] MEDS ORDERED: FENTAnyl 50 MCG/ML VIAL IV PRN (11:30)
[2016-12-16] MEDS ORDERED: ONDANSETRON 4 MG INJ IV PRN (11:30)
[2016-12-16] MEDS ORDERED: hydrALAzine 20 MG INJ IV PRN (11:30)
--- NOTE | 2016-12-16 12:31 | HPN ---
Date/Time of Note Date/Time of Note DATE: 12/16/16 TIME: 12:31 Interval H&P Admission Note Pt. seen H&P reviewed: No system changes MARLO GARNER MD Dec 16, 2016 12:31
[2016-12-16] MEDS ORDERED: METOCLOPRAMIDE 10 MG INJ ONE (12:52)
[2016-12-16] MEDS ORDERED: ONDANSETRON 4 MG INJ ONE (12:52)
[2016-12-16] MEDS ORDERED: DEXAMETHASONE 4 MG/ML 1 ML INJ ONE (12:52)
[2016-12-16] MEDS ORDERED: SUGAMMADEX SODIUM 200 MG/2 ML VIAL IV ONE (13:11)
[2016-12-16] MEDS ORDERED: ROCURONIUM 50 MG INJ ONE (13:11)
[2016-12-16] MEDS ORDERED: IOHEXOL 300MG/ML 30 ML BTL ONE (13:13)
--- NOTE | 2016-12-16 13:18 | PN ---
Date/Time of Note Date/Time of Note DATE: 12/16/16 TIME: 13:17 Assessment/Plan VTE Prophylaxis VTE Prophylaxis Intervention: SCD's Lines/Catheters IV Catheter Type (from Nrs): Peripheral IV Urinary Cath still in place: No Assessment/Plan Assessment/Plan 1. Acute cholecystitis, cholelithiasis, s/p lap cholecystectomy on 12/13/2016, high LFTs, plan for ERCP today 2. Transaminitis, higher today, follow up with LFTs 3. Obesity 4. H/o appendectomy pain control, NPO, IVF GI following Subjective 24 Hr Interval Summary Free Text/Dictation plan for ERCP today Exam/Review of Systems Vital Signs Vitals Vital Signs Date Time Temp Pulse Resp B/P Pulse Ox O2 Delivery O2 Flow Rate FiO2 12/16/16 07:44 98.3 73 18 112/68 93 12/14/16 05:15 Nasal Cannula 2.0 Intake and Output 12/15/16 12/15/16 12/16/16 15:00 23:00 07:00 Intake Total 600 ml 1000 ml 800 ml Output Total 1730 ml 20 ml 20 ml Balance -1130 ml 980 ml 780 ml Exam Constitutional: alert Psych: no complaints Head: normocephalic Eyes: nl conjunctiva ENMT: nl external ears & nose Neck: supple Respiratory: clear to auscultation, normal air movement Cardiovascular: nl pulses, regular rate and rhythm Gastrointestinal: soft, tender Musculoskeletal: nl extremities to inspection Neurological: BINDER AND BOX BUILDER II-XII intact, nl mental status, nl speech, nl strength Results Result Diagram: 12/16/16 0445 12/16/16 0445 Results 24 hrs Laboratory Tests Test 12/16/16 04:45 White Blood Count 6.7 # Red Blood Count 5.13 Hemoglobin 15.5 Hematocrit 47.2 Mean Corpuscular Volume 92.0 Mean Corpuscular Hemoglobin 30.2 Mean Corpuscular Hemoglobin Concent 32.8 Red Cell Distribution Width 13.1 Platelet Count 218 Mean Platelet Volume 10.6 H Neutrophils % 67.9 Lymphocytes % 22.2 Monocytes % 6.0 Eosinophils % 2.5 Basophils % 0.7 Nucleated Red Blood Cells % 0.0 Neutrophils # 4.5 Lymphocytes # 1.5 Monocytes # 0.4 Eosinophils # 0.2 Basophils # 0.1 Nucleated Red Blood Cells # 0.0 Prothrombin Time 13.5 Prothrombin Time Ratio 1.1 INR International Normalized Ratio 1.03 Activated Partial Thromboplast Time 28.7 Sodium Level 136 Potassium Level 4.1 Chloride Level 99 Carbon Dioxide Level 28 Anion Gap 13 Blood Urea Nitrogen 10 Creatinine 0.86 Glucose Level 109 Lactic Acid Level 1.1 Calcium Level 8.9 Phosphorus Level 4.8 Magnesium Level 1.9 Iron Level 95 Total Iron Binding Capacity 332 Percent Iron Saturation 29 Ferritin 1190.0 H Total Bilirubin 4.1 H Direct Bilirubin 3.10 H Indirect Bilirubin 1.0 Aspartate Amino Transf (AST/SGOT) 318 H Alanine Aminotransferase (ALT/SGPT) 616 H Alkaline Phosphatase 230 H B-Type Natriuretic Peptide < 11 Total Protein 7.8 Albumin 3.9 Globulin 3.90 H Albumin/Globulin Ratio 1.00 Medications Medications Current Medications Ondansetron HCl (Zofran Inj) 4 mg Q6H PRN IV NAUSEA AND/OR VOMITING; Start at 01:00 Acetaminophen (Tylenol Tab) 650 mg Q6H PRN PO PAIN LEVEL 1-3 OR FEVER; Start at 01:00 Famotidine 20 mg 20 mg Q12 IV Last administered on 12/16/16 08:09; Admin Dose 20 MG; Start 12/12/16 at 09:00 Potassium Chloride/Dextrose/ Sod Cl (D5-1/2ns + KCl 20 Meq) 1,000 ml @ 100 mls/ hr Q10H IV Last administered on 12/16/16 08:09; Admin Dose 100 MLS/HR; Start 12/13/16 at 18:23 Acetaminophen/ Hydrocodone Bitart ([place] (5/325)) 1 tab Q4H PRN PO PAIN LEVEL 4 -7; Start 12/13/16 at 18:30 Acetaminophen/ Hydrocodone Bitart ([place] (5/325)) 2 tab Q4H PRN PO PAIN LEVEL 7 -10; Start 12/13/16 at 18:30 Hydromorphone HCl (Dilaudid) 0.5 mg Q2 PRN IV PAIN Last administered on 03:40; Admin Dose 0.5 MG; Start 12/13/16 at 18:30 Hydromorphone HCl (Dilaudid) 1 mg Q2 PRN IV PAIN Last administered on 22:31; Admin Dose 1 MG; Start 12/13/16 at 18:30 Docusate Sodium (Colace) 100 mg BID PRN PO CONSTIPATION; Start 12/13/16 at 18: 30 Bisacodyl (Dulcolax Supp) 10 mg BID PRN [place] CONSTIPATION; Start 12/13/16 at 18: 30 Sodium Biphosphate/ Sodium Phosphate (Fleet Enema) 133 ml BID PRN [place] CONSTIPATION; Start 12/13/16 at 18:30 Enoxaparin Sodium 40 mg 40 mg DAILY SC Last administered on 12/15/16 08:42; Admin Dose 40 MG; Start 12/14/16 at 09:00 Piperacillin Sod/ Tazobactam Sod (Zosyn 3.375gm/ 100 ml (Pmx)) 100 ml @ 200 mls /hr Q8 IVPB Last administered on 12/16/16 06:09; Admin Dose 200 MLS/HR; Start 12/14/16 at 15:00 CARLOS VELEZ MD Dec 16, 2016 13:18
--- NOTE | 2016-12-16 13:29 | OPPN ---
Date/Time of Note Date/Time of Note DATE: 12/16/16 TIME: 13:24 Proc Note GI Procedure Date 12/16/16 Pre-procedure Diagnosis * Choledocholithiasis Post-procedure Diagnosis Assessment: * Choledocholithiasis, soft stones distal common bile duct * Bile leak from cystic duct stump * Post sphincterotomy * Post stone removal * Post stent placement Afghan 10, 7 cm plastic biliary stent Plan:: * Close observation * Continue antibiotics * Advance diet as tolerated * Monitor liver function tests * Will required follow-up ERCP in 2-3 months to remove stent and any residual stones if present Procedure Performed: Other (ERCP plus sphincterotomy plus stone removal plus stent placement) Surgeon MARLO GARNER MD [employer] Installer none Anesthesia Type: general Anesthesiologist: VINNY SEGAL MD Tourniquet Time none EBL none Transfusion required none Grafts/Implants Afghan stent, 7 cm plastic biliary stent Tubes/Drains none Complication(s) none Pt Condition post procedure: stable Disposition: PACU Indications: other (Choledocholithiasis) Procedure Description After informed consent, with the patient/relatives understanding the procedure, its indications, potential risks and complications, including but not limited to : allergic reaction, bleeding, perforation or infection, and after all pertinent questions were answered to the patients satisfaction, the patient/ relatives signed witnessed informed consent. Following this, premedication was administered slowly IV push under careful cardiovascular and respiratory monitoring with pulse oximetry, automatic blood pressure, and monitoring specialist. Once the sedative effect was achieved the patient was place in the prone position in the radiology special procedures suite; the side viewing panendoscope was introduced and advanced under visual control. Careful examination of the upper gastrointestinal tract, both on insertion as well as withdrawal of the instrument disclosed the following findings: Esophagus: The mucosa of the entire appears within normal limits. There is no evidence of esophagitis, varices, neoplasm or stricture. No Hiatal Hernia identified. Stomach: Upon entrance to the stomach air was insufflated, the gastric beck distended normally, the mucosa of the fundus, body and antrum of the stomach was carefully examined both head-on and on retroflexion, and shows no abnormalities. There is no evidence of gastritis, ulcers, or neoplasm. Pylorus: The pylorus appears patent and within normal limits, with no evidence of gastric outlet obstruction. Duodenum: The duodenal mucosa was carefully examined in the duodenal bulb as well as the second portion of the duodenum and appears unremarkable with no evidence of duodenitis, ulcer or neoplasm. Ampulla of vater: The ampulla of Vater was identified and carefully examined appearing within normal limits. Cannulation: At this point cannulation was accomplished with the following fluoroscopic findings: Pancreatogram: Avoided Cholangiogram: There is dilatation of the biliary tree to approximately 10-11 millimeters. There is evidence of a bile leak from the cystic stump. Filling defects that are somewhat amorphous are noted in the distal common bile duct. A standard sphincterotomy was performed and upon completion of the sphincterotomy large quantities of sludge came out. Following this balloon catheter measuring 9-12 mm was used to sweep the biliary tree and several occasions were removed as soft large stone. Following this a Afghan 10, 7 cm biliary plastic stent was inserted without difficulty and with excellent drainage. The instrument was then withdrawn the patient tolerated the procedure well and was transfer out of the endoscopy suite awake, and in good condition to continue to recover under observation. Copies To: CC: MARLO GARNER MD, MORDO MD Dec 16, 2016 13:29
--- NOTE | 2016-12-16 14:13 | RADRPT ---
PROCEDURE: Intraoperative imaging for ERCP with fluoroscopy. CLINICAL INDICATION: Right upper quadrant pain. Intraoperative. TECHNIQUE: 13 images of the right upper quadrant of the abdomen were obtained in the operating tamra m with an image intensifier. No radiologist was in attendance. 125 seconds of fluoroscopy time was used. COMPARISON: MRCP dated 12/15/2016. FINDINGS: Images demonstrate the endoscope in position. Contrast was injected into the common bile duct. The g allbladder is surgically absent. A surgical drain is present in the gallbladder bed. With contrast i njection, there is extravasation of contrast to the gallbladder bed region, likely from the cystic d uct remnant. Subsequent images demonstrate a balloon sweep. The final images demonstrate placement o f a common bile duct stent in satisfactory position. IMPRESSION: 1. ERCP as described above. 2. Contrast leak, likely from the cystic duct remnant. 3. Placement of common bile duct stent. RPTAT: QQ .Nikhil Alves MD, MD Date Time Electronically viewed and signed by .Nkihil Alves MD, on 12/16/2016 14:13 .R/
--- NOTE | 2016-12-16 14:18 | PN ---
Date/Time of Note Date/Time of Note DATE: 12/16/16 TIME: 13:45 Assessment/Plan Lines/Catheters IV Catheter Type (from [facility]): Peripheral IV Dickinson in Place (from [facility]): No Assessment/Plan Assessment/Plan [facility] Progress Note Date of Service: 12/16/2016 Place of service: [facility] Today's Assessment & Plan: Overall stable and appears to be improving, albeit slowly. LFTs improving. MRCP and 2 days ERCP both demonstrated lack of any evidence of common bile duct injury and confirmed presence of sludge within the common bile duct. There was also a small leak from cystic duct staple line. This was effectively managed by sphincterotomy and stenting that Dr. Pierre kindly performed (much appreciate great care and input). No indication for acute surgical intervention. Discussed with various members of the patient's family including his and with Dr. Pierre. Again did not get to see the patient because he was not available in his room. Patient's family appear to understand and agreed with plans. With above assessment, I've recommended the followin. Continue in-house care 2. Increase activity 3. Increase incentive spirometry 4. Labs in a.m. including LFTs 5. Possible discharge planning in 24-48 hours Nature of presenting problem: High severity Please note that, given the multiple number of diagnoses or management options, the moderate amount and/or complexity of data needed to be reviewed, and I risk of complications and/or morbidity or mortality, this qualifies as moderate complexity type of decision-making. Disclaimers: 1. Inadvertent spelling and grammatical errors are likely due to electronic health record (EHR)/dictation software use and do not reflect on the quality of delivered patient care. 2. The electronic timestamp recorded on this note does not necessarily reflect the actual date and time of the visit. 3. Portions of this note are created through electronic templates and computer algorithms that may bring in information either from the system or from other physicians and providers that are outside of my control and may not be always accurate. In general (but not always) this happens either in the beginning or at the end of the note. My portions of the gathered data are generally dictated in 1 continuous block of text and entered into one field in the EHR. 4. There may be other unanticipated errors in the note that are outside of my control. I can only attest to the portions of the note that I have created. Updated clinical summary: Very pleasant 41-year-old gentleman with known history of cholelithiasis and BMI 38.2, admitted to the emergency department at [facility] on 12/11/2016 with cholelithiasis, acute cholecystitis, and possible choledocholithiasis. Comorbidities: 1. Severe acute on chronic cholecystitis with known cholelithiasis. S/p an otherwise uncomplicated but challenging laparoscopic cholecystectomy with core needle liver biopsy at [facility] 12/13/16 with findings of severe acute on chronic cholecystitis and significant hepatic steatosis. 2. BMI 38.2 3. Hepatic steatosis 4. Appendectomy 5. Status post ERCP [facility] 12/16/2016 with finding of sludge within common bile duct and small bile leak from cystic duct staple line. Status post sphincterotomy, removal of sludge from common bile duct and placement of stent by Dr. Pierre. Subjective: No major reported events or complaints; no major reported abd pain and under control with medications. Objective: Vitals: See below I's & O's: See below Exam: Patient not in his room Labs: See below Exam/Review of Systems Vital Signs Vitals Vital Signs Date Time Temp Pulse Resp B/P Pulse Ox O2 Delivery O2 Flow Rate FiO2 12/16/16 14:04 69 14 119/63 96 Nasal Cannula 2.0 12/16/16 13:30 97.9 Intake and Output 12/15/16 12/15/16 12/16/16 15:00 23:00 07:00 Intake Total 600 ml 1000 ml 800 ml Output Total 1730 ml 20 ml 20 ml Balance -1130 ml 980 ml 780 ml Results Result Diagram: 12/16/16 0445 12/16/16 0445 GREG LAWRENCE M.D. Dec 16, 2016 14:18
[2016-12-17 02:08] VITALS: BP 107/58; RESP 16
[2016-12-17] MEDS: D5W-0.45 NACL + KCL 20 MEQ 1,000 ML IV SCH (02:23)
[2016-12-17] MEDS: PIPER-TAZO 3.375 GM IV (PMX) 100 ML IVPB SCH ×2 (05:37→14:32)
[2016-12-17 08:13] LABS: ALBUMIN 3.7 g/dl (3.3-4.9); TOTAL PROTEIN 7.7 g/dl (6.1-8.1)
[2016-12-17 08:30] LABS: WHITE BLOOD COUNT 8.6 10^3/ul (4.8-10.8)
[2016-12-17 08:31] LABS: BASOPHILS % 0.5 % (0.0-2.0); EOSINOPHILS % 0.5 % (0.0-7.0); HEMATOCRIT 46.1 % (42.0-52.0); HEMOGLOBIN 15.1 g/dl (14.0-18.0); LYMPHOCYTES # 1.2 10^3/ul (0.8-2.9); LYMPHOCYTES % 14.1 % (15.0-51.0); MEAN CORPUSCULAR HEMOGLOBIN 30.5 pg (29.0-33.0); MEAN CORPUSCULAR HGB CONC 32.8 g/dl (32.0-37.0); MEAN CORPUSCULAR VOLUME 93.1 fl (82.0-101.0); MEAN PLATELET VOLUME 10.9 fl (7.4-10.4); MONOCYTE # 0.5 10^3/ul (0.3-0.9); MONOCYTES % 5.9 % (0.0-11.0); NEUTROPHIL # 6.7 10^3/ul (1.6-7.5); NEUTROPHILS % 78.3 % (39.0-77.0); PLATELET COUNT 210 10^3/UL (140-415); RED BLOOD COUNT 4.95 10^6/ul (4.70-6.10); RED CELL DISTRIBUTION WIDTH 13.2 % (11.5-14.5)
[2016-12-17 08:36] LABS: BILIRUBIN,DIRECT 0.4 mg/dl (0.00-0.20); BILIRUBIN,INDIRECT 1.1 mg/dl (0-1.1); BILIRUBIN,TOTAL 1.5 mg/dl (0.2-1.3)
[2016-12-17 08:45] LABS: CALCIUM 9.4 mg/dl (8.4-10.2); POTASSIUM 4.4 mmol/L (3.5-5.1)
[2016-12-17 09:13] LABS: MAGNESIUM 1.9 mg/dl (1.7-2.5); PHOSPHORUS 5.9 mg/dl (2.5-4.9)
[2016-12-17] MEDS: FAMOTIDINE 20 MG INJ IV SCH (09:57)
[2016-12-17] MEDS: ENOXAPARIN 40 MG/0.4 ML SYG SC SCH (10:06)
[2016-12-17 10:21] LABS: INR 1.09; PARTIAL THROMBOPLASTIN TIME 29.4 Sec (25.0-35.0); PROTIME 14.1 Sec (12.2-14.2); PT RATIO 1.1
--- NOTE | 2016-12-17 11:33 | PN ---
Date/Time of Note Date/Time of Note DATE: 12/17/16 TIME: 11:33 Assessment/Plan Lines/Catheters IV Catheter Type (from [facility]): Peripheral IV Urinary Cath still in place: No Exam/Review of Systems Vital Signs Vitals Vital Signs Date Time Temp Pulse Resp B/P Pulse Ox O2 Delivery O2 Flow Rate FiO2 12/17/16 02:08 98.7 62 16 107/58 93 12/16/16 14:46 Nasal Cannula 2.0 Intake and Output 12/16/16 12/16/16 12/17/16 15:00 23:00 07:00 Intake Total 1100 ml 1375 ml Output Total 1230 ml 1120 ml Balance -130 ml 255 ml Results Result Diagram: 12/17/16 0637 12/17/16 0637 Results 24 hrs Laboratory Tests Test 12/17/16 06:37 12/17/16 06:39 12/17/16 08:42 White Blood Count 8.6 # Red Blood Count 4.95 Hemoglobin 15.1 Hematocrit 46.1 Mean Corpuscular Volume 93.1 Mean Corpuscular Hemoglobin 30.5 Mean Corpuscular Hemoglobin Concent 32.8 Red Cell Distribution Width 13.2 Platelet Count 210 Mean Platelet Volume 10.9 H Neutrophils % 78.3 H Lymphocytes % 14.1 L Monocytes % 5.9 Eosinophils % 0.5 Basophils % 0.5 Nucleated Red Blood Cells % 0.0 Neutrophils # 6.7 Lymphocytes # 1.2 Monocytes # 0.5 Eosinophils # 0.0 Basophils # 0.0 Nucleated Red Blood Cells # 0.0 Sodium Level 137 Potassium Level 4.4 Chloride Level 98 Carbon Dioxide Level 28 Anion Gap 15 Blood Urea Nitrogen 14 Creatinine 1.00 Glucose Level 93 Calcium Level 9.4 Phosphorus Level 5.9 H Magnesium Level 1.9 Total Bilirubin 1.5 #H Direct Bilirubin 0.40 #H Indirect Bilirubin 1.1 Aspartate Amino Transf (AST/SGOT) 184 H Alanine Aminotransferase (ALT/SGPT) 521 H Alkaline Phosphatase 206 H Total Protein 7.7 Albumin 3.7 Prothrombin Time 14.1 Prothrombin Time Ratio 1.1 INR International Normalized Ratio 1.09 Activated Partial Thromboplast Time 29.4 Medications Medications Current Medications Ondansetron HCl (Zofran Inj) 4 mg Q6H PRN IV NAUSEA AND/OR VOMITING; Start at 01:00 Acetaminophen (Tylenol Tab) 650 mg Q6H PRN PO PAIN LEVEL 1-3 OR FEVER; Start at 01:00 Famotidine 20 mg 20 mg Q12 IV Last administered on 12/17/16 09:57; Admin Dose 20 MG; Start 12/12/16 at 09:00 Potassium Chloride/Dextrose/ Sod Cl (D5-1/2ns + KCl 20 Meq) 1,000 ml @ 100 mls/ hr Q10H IV Last administered on 12/16/16 08:09; Admin Dose 100 MLS/HR; Start 12/13/16 at 18:23 Acetaminophen/ Hydrocodone Bitart ([place] (5/325)) 1 tab Q4H PRN PO PAIN LEVEL 4 -7; Start 12/13/16 at 18:30 Acetaminophen/ Hydrocodone Bitart ([place] (5/325)) 2 tab Q4H PRN PO PAIN LEVEL 7 -10; Start 12/13/16 at 18:30 Hydromorphone HCl (Dilaudid) 0.5 mg Q2 PRN IV PAIN Last administered on 03:40; Admin Dose 0.5 MG; Start 12/13/16 at 18:30 Hydromorphone HCl (Dilaudid) 1 mg Q2 PRN IV PAIN Last administered on 22:31; Admin Dose 1 MG; Start 12/13/16 at 18:30 Docusate Sodium (Colace) 100 mg BID PRN PO CONSTIPATION; Start 12/13/16 at 18: 30 Bisacodyl (Dulcolax Supp) 10 mg BID PRN RI CONSTIPATION; Start 12/13/16 at 18: 30 Sodium Biphosphate/ Sodium Phosphate (Fleet Enema) 133 ml BID PRN RI CONSTIPATION; Start 12/13/16 at 18:30 Enoxaparin Sodium 40 mg 40 mg DAILY SC Last administered on 12/17/16 10:06; Admin Dose 40 MG; Start 12/14/16 at 09:00 Piperacillin Sod/ Tazobactam Sod (Zosyn 3.375gm/ 100 ml (Pmx)) 100 ml @ 200 mls /hr Q8 IVPB Last administered on 12/17/16 05:37; Admin Dose 200 MLS/HR; Start 12/14/16 at 15:00 BRET RODRIGUEZ NP Dec 17, 2016 11:33
--- NOTE | 2016-12-17 14:37 | PN ---
Date/Time of Note Date/Time of Note DATE: 12/17/16 TIME: 14:37 Assessment/Plan Lines/Catheters IV Catheter Type (from Nrs): Peripheral IV Dickinson in Place (from [facility]): No Assessment/Plan Assessment/Plan [facility] Progress Note Date of Service: 12/17/2016 Location of Service: [facility] fourth floor Today's Assessment & Plan: Overall stable and doing well. No clinically significant or obvious bile leak. Abdomen remains benign. No indications of major postoperative complications or wound problems. No indication for acute surgical intervention. Okay from my standpoint to discharge home with follow-up with me in 1-2 weeks. Discussed with patient and answered all questions. No family present in the room. Also discussed with team. Patient appeared to understand and agreed with plans. With above assessment, I've recommended the following for today: 1. Discharge home after adequate drain care teachings to patient and family 2. Please educate patient to keep a daily log of output and bring to the office on outpatient visits 3. Please include the following the patient's discharge instructions: "Please call [phone] if any of fever, nausea, vomiting, discharge from wound, wound redness, increase or sudden pain, blood in stool or vomit, or any other unusual signs or symptoms. Also, please call the same number in a few days to schedule an appointment for your follow up visit. Patient may remove dressings tomorrow. Showers OK starting tomorrow. No swimming , hot tub or bath for 2 weeks. No lifting more than 25 lbs for 8 weeks." Thank you again for your great care of this very pleasant patient and wonderful family. If there are any questions, please feel free to call me at [phone]. Nature of presenting problem: High severity Please note that, given the multiple number of diagnoses or management options, the moderate amount and/or complexity of data needed to be reviewed, and high risk of complications and/or morbidity or mortality, this qualifies as high complexity type of decision-making. Disclaimers: 1. Inadvertent spelling and grammatical errors are likely due to electronic health record (EHR)/dictation software used and do not reflect on the quality of delivered patient care. 2. The electronic timestamp recorded on this note does not necessarily reflect the actual date and time of the visit or the service. 3. Portions of this note may have been created through electronic templates and computer algorithms that might bring in information either from the system or from other physicians and providers. Please note that such information may or may not contain errors, the occurrence of which are outside of my control. In general (but not always) this happens either in the beginning or at the end of the note. The portion of the note that I have created are generally done in 1 continuous block of text, flanked at the beginning and at the end by " ", and entered into one field in the EHR. 4. There may be other unanticipated errors in the note that are outside of my control. I can only attest to the portions of the note that I have created. Updated clinical summary: Very pleasant 41-year-old gentleman with known history of cholelithiasis and BMI 38.2, admitted to the emergency department at [facility] on 12/11/2016 with cholelithiasis, acute cholecystitis, and possible choledocholithiasis. S/p an otherwise uncomplicated but challenging laparoscopic cholecystectomy with core needle liver biopsy at [facility] 12/13/16 with findings of severe acute on chronic cholecystitis and significant hepatic steatosis. Had brief period of rising LFTs that led to HIDA scan showing possible leak from cystic duct stump. This was followed by an MRCP that demonstrated intact common bile duct. Status post ERCP [facility] 12/16/2016 with finding of sludge within common bile duct and small bile leak from cystic duct staple line. Status post sphincterotomy, removal of sludge from common bile duct and placement of stent by Dr. Pierre. LFTs started to come down 1 day prior to ERCP and continue to come down after the procedure. Comorbidities: 1. Severe acute on chronic cholecystitis with known cholelithiasis. S/p an otherwise uncomplicated but challenging laparoscopic cholecystectomy with core needle liver biopsy at [facility] 12/13/16 with findings of severe acute on chronic cholecystitis and significant hepatic steatosis. 2. BMI 38.2 3. Hepatic steatosis 4. Appendectomy 5. Status post ERCP [facility] 12/16/2016 with finding of sludge within common bile duct and small bile leak from cystic duct staple line. Status post sphincterotomy, removal of sludge from common bile duct and placement of stent by Dr. Pierre. Subjective: No major events or complaints; no abd pain and under control with medications; no n/v/d; no sob or cp; + flatus; + BM and normal; + activity Objective: Vitals: See below Exam: GENERAL: On exam, the patient was laying in bed and appeared to be comfortable and in no acute distress. ABDOMEN: Soft, nontender and nondistended. Incision dressing s were discontinued and incisions [ are clean, dry and intact without any evidence of erythema, edema, discharge, or hernia. Surgical drain ss without obvious hint of bile. There are no peritoneal signs or guarding. SKIN: Skin appears to be pink and feels warm to touch. NEUROLOGIC: Patient is awake, alert, and follows commands appropriately. Exam/Review of Systems Vital Signs Vitals Vital Signs Date Time Temp Pulse Resp B/P Pulse Ox O2 Delivery O2 Flow Rate FiO2 12/17/16 02:08 98.7 62 16 107/58 93 12/16/16 14:46 Nasal Cannula 2.0 Intake and Output 12/16/16 12/16/16 12/17/16 15:00 23:00 07:00 Intake Total 1100 ml 1375 ml Output Total 1230 ml 1120 ml Balance -130 ml 255 ml Results Result Diagram: 12/17/16 0637 12/17/16 0637 GREG LAWRENCE M.D. Dec 17, 2016 14:37
--- NOTE | 2016-12-17 15:08 | DS ---
Date/Time of Note Date/Time of Note DATE: 12/17/16 TIME: 15:04 Discharge Summary Admission/Discharge Info Admit Date/Time Dec 11, 2016 at 23:05 Discharge Date/Time Discharge Diagnosis 1. Acute cholecystitis, cholelithiasis, s/p lap cholecystectomy on 12/13/2016 2. Leak from cystic duct stump. Status post ERCP with sphincterotomy, removal of sludge from common bile duct and placement of stent by Dr. Pierre on 2069. 3. Obesity Patient Condition: Stable Consults , gastroenterology DR.Kambiez Durand, surgery Procedures 12/13/2016- Laparoscopic cholecystectomy with core needle liver biopsy by DR.Kambiez Durand 12/16/2016-ERCP with sphincterotomy, removal of sludge from common bile duct and placement of stent by Dr. Pierre on 12/16/2069. Hospital Course This is a 41-year-old obese male with known history of cholelithiasis and appendectomy admitted to the emergency department at [facility] on 12/11/2016 with with right upper quadrant abdominal pain and vomiting 3 days. Imaging studies suggestive of cholelithiasis, acute cholecystitis, and possible choledocholithiasis. Patient was admitted. Surgery consultation was called. Patient was kept n.p.o., treated with IV fluids and IV pain control. On 12/13/2016, patient had undergone S/laparoscopic cholecystectomy with core needle liver biopsy with findings of severe acute on chronic cholecystitis and significant hepatic steatosis. During the course of hospitalization, patient was noted with a brief period of rising LFTs that led to HIDA scan showing possible leak from cystic duct stump. MRCP that showed intact common bile duct. Patient had GI evaluation and he had undergone ERCP with sphincterotomy, removal of sludge from common bile duct and placement of stent by Dr. Pierre on 12/16/2069. LFTs started to trend down after the procedure. Patient was started on diet which he was able to tolerate. Patient continued to have ARIANNA drain with minimal output. At this time, as per surgery recommendation, patient can be discharged home with outpatient follow-up. ARIANNA drain will be removed at DR.Kambiez Durand's office in 1-2 weeks. Patient was also instructed on lifestyle modification for underlying obesity. Disposition: Patient will be discharged home with drain in place. He was instructed on adequate pain control and keeping a log of output and bring to the office on outpatient visit. He was also instructed to call [phone] if any of fever, nausea, vomiting, discharge from wound, wound redness, increase or sudden pain, blood in stool or vomit, or any other unusual signs or symptoms. Patient may remove dressings tomorrow. Showers OK starting tomorrow. No swimming , hot tub or bath for 2 weeks. No lifting more than 25 lbs for 8 weeks. Approximately 60 minutes was spent in coordinating the discharge on this patient. Patient was seen in collaboration with Dr. Oosrio. Home Meds Active Scripts Cephalexin* (Keflex*) 500 Mg Capsule, 500 MG PO Q6, #28 CAP Prov:BRET RODRIGUEZ V. COMPUTERIZED MILL RECORDER 12/17/16 Docusate Sodium (Dok) 100 Mg Capsule, 100 MG PO BID Y for CONSTIPATION, #60 CAP Prov:RODRIGUEZBRET V. COMPUTERIZED MILL RECORDER 12/17/16 Hydrocodone Bit-Acetaminophen (Hydrocodone Bit-APAP) 5-325MG Tablet, 1 TAB PO Q4H Y for PAIN LEVEL 4-7, #30 TAB Prov:BRET RODRIGUEZ V. COMPUTERIZED MILL RECORDER 12/17/16 Reported Medications Acetaminophen* (Acetaminophen*) 500 MG Extra Strength Tablet, 500 MG PO Q4H Y for PAIN AND OR ELEVATED TEMP, TAB 12/12/16 Discontinued Scripts Tamsulosin Hcl* (Flomax*) 0.4 Mg Cap.er.24h, 0.4 MG PO DAILY, #30 CAP Prov:AYDEN SPICER NP 07/07/15 Ibuprofen* (Motrin*) 800 Mg Tab, 800 MG PO Q6H Y for PAIN AND OR ELEVATED TEMP, #30 TAB Prov:AYDEN SPICER NP 07/07/15 Follow-up Plan ACTIVITY: Activity Restrictions: Slowly Increase Activity Rest between Activity Avoid Heavy Housework Bathing Restrictions: Shower FOLLOW UP/APPOINTMENTS Follow-up Plan Follow-up with primary care doctor in 2 weeks OTHER ORDERS: Other Orders: ARIANNA drain will be removed at DR.Kambiez Durand's office in 1-2 weeks. Patient was also instructed on lifestyle modification for underlying obesity. Patient was instructed on adequate pain control and keeping a log of output and bring to the office on outpatient visit. He was also instructed to call if any of fever, nausea, vomiting, discharge from wound, wound redness , increase or sudden pain, blood in stool or vomit, or any other unusual signs or symptoms. Patient may remove dressings tomorrow. Showers OK starting tomorrow. No swimming , hot tub or bath for 2 weeks. No lifting more than 25 lbs for 8 weeks. Primary Care Provider Care Physician No Primary Pending Labs Laboratory Tests Test 12/17/16 06:37 12/17/16 06:39 12/17/16 08:42 White Blood Count 8.610^3/ul (4.8-10.8) Red Blood Count 4.9510^6/ul (4.70-6.10) Hemoglobin 15.1g/dl (14.0-18.0) Hematocrit 46.1% (42.0-52.0) Mean Corpuscular Volume 93.1fl (82.0-101.0) Mean Corpuscular Hemoglobin 30.5pg (29.0-33.0) Mean Corpuscular Hemoglobin Concent 32.8g/dl (32.0-37.0) Red Cell Distribution Width 13.2% (11.5-14.5) Platelet Count 72304^3/UL (140-415) Mean Platelet Volume 10.9fl (7.4-10.4) Neutrophils % 78.3% (39.0-77.0) Lymphocytes % 14.1% (15.0-51.0) Monocytes % 5.9% (0.0-11.0) Eosinophils % 0.5% (0.0-7.0) Basophils % 0.5% (0.0-2.0) Nucleated Red Blood Cells % 0.0/100WBC (0.0-0.0) Neutrophils # 6.710^3/ul (1.6-7.5) Lymphocytes # 1.210^3/ul (0.8-2.9) Monocytes # 0.510^3/ul (0.3-0.9) Eosinophils # 0.010^3/ul (0.0-0.5) Basophils # 0.010^3/ul (0.0-0.1) Nucleated Red Blood Cells # 0.010^3/ul (0.0-0.0) Sodium Level 137mmol/L (135-144) Potassium Level 4.4mmol/L (3.5-5.1) Chloride Level 98mmol/L (97-110) Carbon Dioxide Level 28mmol/L (21-31) Anion Gap 15 (8-16) Blood Urea Nitrogen 14mg/dl (7-20) Creatinine 1.00mg/dl (0.61-1.24) Glucose Level 93mg/dl (70-220) Calcium Level 9.4mg/dl (8.4-10.2) Phosphorus Level 5.9mg/dl (2.5-4.9) Magnesium Level 1.9mg/dl (1.7-2.5) Total Bilirubin 1.5mg/dl (0.2-1.3) Direct Bilirubin 0.40mg/dl (0.00-0.20) Indirect Bilirubin 1.1mg/dl (0-1.1) Aspartate Amino Transf (AST/SGOT) 184IU/L (15-46) Alanine Aminotransferase (ALT/SGPT) 521IU/L (13-69) Alkaline Phosphatase 206IU/L (42-121) Total Protein 7.7g/dl (6.1-8.1) Albumin 3.7g/dl (3.3-4.9) Prothrombin Time 14.1Sec (12.2-14.2) Prothrombin Time Ratio 1.1 INR International Normalized Ratio 1.09 Activated Partial Thromboplast Time 29.4Sec (25.0-35.0) BRET RODRIGUEZ NP Dec 17, 2016 15:08
--- NOTE | 2016-12-17 15:10 | PDOCDIS ---
Discharge Instructions DIAGNOSIS Discharge Diagnosis 1. Acute cholecystitis, cholelithiasis, s/p lap cholecystectomy on 12/13/2016 2. Leak from cystic duct stump. Status post ERCP with sphincterotomy, removal of sludge from common bile duct and placement of stent by Dr. Pierre on 2069. 3. Obesity CONDITION Patient Condition: Stable HOME CARE INSTRUCTIONS: Diet Instructions: Low Fat /Cholesterol ACTIVITY: Activity Restrictions: Slowly Increase Activity Rest between Activity Avoid Heavy Housework Bathing Restrictions: Shower FOLLOW UP/APPOINTMENTS Follow-up Plan Follow-up with primary care doctor in 2 weeks Follow-up with DR.Kambiez Durand's office in 1-2 weeks. call [phone] for appointment. OTHER ORDERS: Other Orders: ARIANNA drain will be removed at DR.Kambiez Durand's office in 1-2 weeks. Patient was also instructed on lifestyle modification for underlying obesity. Patient was instructed on adequate pain control and keeping a log of output and bring to the office on outpatient visit. He was also instructed to call [phone] if any of fever, nausea, vomiting, discharge from wound, wound redness , increase or sudden pain, blood in stool or vomit, or any other unusual signs or symptoms. Patient may remove dressings tomorrow. Showers OK starting tomorrow. No swimming , hot tub or bath for 2 weeks. No lifting more than 25 lbs for 8 weeks. BRET RODRIGUEZ NP Dec 17, 2016 15:10
[2016-12-17] MEDS ORDERED: HYDR-3498 PO (15:11)
[2016-12-17] MEDS ORDERED: DOCU-216 PO (15:11)
[2016-12-17] MEDS ORDERED: CEPH-443 PO (15:12)
[2016-12-18 14:52] LABS: ANA SCREEN NEGATIVE (NEGATIVE)
== END 2016-12-17 16:45 | disposition home or self-care (01) | DRG 418 ==
LOC: FTE 18:17 → MS1 23:05
PROVIDERS: ADMIT Family Medicine; ATTEND Family Medicine
PROC: 0FB04ZX Excision of Liver, Percutaneous Endoscopic Approach, Diagnostic (ICD-10-PCS; 2016-12-13)
PROC: 0DNS4ZZ (ICD-10-PCS; 2016-12-13)
PROC: 0FT44ZZ Resection of Gallbladder, Percutaneous Endoscopic Approach (ICD-10-PCS; principal; 2016-12-13 15:00)
PROC: CW101ZZ Planar Nuclear Medicine Imaging of Abdomen using Technetium 99m (Tc-99m) (ICD-10-PCS; 2016-12-15)
PROC: 0F798DZ Dilation of Common Bile Duct with Intraluminal Device, Via Natural or Artificial Opening Endoscopic (ICD-10-PCS; 2016-12-16)
PROC: BF10YZZ Fluoroscopy of Bile Ducts using Other Contrast (ICD-10-PCS; 2016-12-16)
PROC: 0FC98ZZ Extirpation of Matter from Common Bile Duct, Via Natural or Artificial Opening Endoscopic (ICD-10-PCS; 2016-12-16)
DX: K80.12 Calculus of gallbladder with acute and chronic cholecystitis without obstruction (principal); K91.89 Other postprocedural complications and disorders of digestive system; K76.0 Fatty (change of) liver, not elsewhere classified; K83.8 Other specified diseases of biliary tract; E66.9 Obesity, unspecified; Z68.38 Body mass index [BMI] 38.0-38.9, adult; E80.6 Other disorders of bilirubin metabolism; K66.0 Peritoneal adhesions (postprocedural) (postinfection); F10.10 Alcohol abuse, uncomplicated; R74.0 Nonspecific elevation of levels of transaminase and lactic acid dehydrogenase [LDH]; Y83.8 Other surgical procedures as the cause of abnormal reaction of the patient, or of later complication, without mention of misadventure at the time of the procedure; Y92.239 Unspecified place in hospital as the place of occurrence of the external cause
CPT/HCPCS: 36415; 71010; 74176; 74181; 74330; 76705; 78226; 80048; 80053; 80061; 80076; 81001; 82310; 82728; 83036; 83540; 83605; 83690; 83735; 83880; 84100; 84443; 85025; 85610; 85730; 86038; 86255; 86664; 86704; 86709; 86803; 87340; 87496; 88304; 88307; 88313; 93005; 96374; 96375; 96376; A9537; C2617; J0690; J1100; J1170; J1650; J2175; J2250; J2270; J2370; J2405; J2543; J2765; J2795; J3010; J3480; J7030; J7999; Q9967

== ENCOUNTER 2016-12-28 10:54 | Emergency (ER) | payer MEDICAID ==
[~2016-12-28] VITALS: Wt 110.5 kg
[~2016-12-28 10:54] MED LIST changes: +ACET-141 PO; +CEPH-443 PO; +DOCU-216 PO; +HYDR-3498 PO; -IBUP800T25 PO; -TAMS-14 PO
--- NOTE | 2016-12-28 17:20 | ERD ---
ER Documentation Chief Complaint Date/Time DATE: 12/28/16 TIME: 17:15 Chief Complaint WOUND CHECK FROM PREVIOUS LAP ARNULFO HPI Patient is a 41-year-old male presenting to the emergency department for an examination of his cholecystectomy site which he had done approximately 2 weeks ago. He does have a follow-up with the surgeon who performed it on January 02, 2017. He reports some drainage from the surgical site intermittently for the past 3 days. He also reports redness. He denies fevers, chills, pain, or other symptoms. ROS All systems reviewed and are negative except as per history of present illness. Medications Home Meds Active Scripts Cephalexin* (Keflex*) 500 Mg Capsule, 500 MG PO Q6, #28 CAP Prov:RODRIGUEZ,BRET V. GROOMING ASSISTANT 12/17/16 Docusate Sodium (Dok) 100 Mg Capsule, 100 MG PO BID Y for CONSTIPATION, #60 CAP Prov:RODRIGUEZ,BRET V. GROOMING ASSISTANT 12/17/16 Hydrocodone Bit-Acetaminophen (Hydrocodone Bit-APAP) 5-325MG Tablet, 1 TAB PO Q4H Y for PAIN LEVEL 4-7, #30 TAB Prov:RODRIGUEZ,BRET V. GROOMING ASSISTANT 12/17/16 Reported Medications Acetaminophen* (Acetaminophen*) 500 MG Extra Strength Tablet, 500 MG PO Q4H Y for PAIN AND OR ELEVATED TEMP, TAB 12/12/16 Allergies Allergies: Coded Allergies: No Known Allergy (Unverified , 12/11/16) PMhx/Soc History of Surgery: No (Appendectomy) Anesthesia Reaction: No Hx Neurological Disorder: No Hx Respiratory Disorders: No Hx Cardiac Disorders: No Hx Psychiatric Problems: No Hx Miscellaneous Medical Probl: No Hx Alcohol Use: Yes (OCCASIONALLY) Hx Substance Use: No Hx Tobacco Use: No Smoking Status: Never smoker Physical Exam Vitals Vital Signs Date Time Temp Pulse Resp B/P Pulse Ox O2 Delivery O2 Flow Rate FiO2 12/28/16 10:55 98.4 83 17 122/67 97 Physical Exam Const: Nontoxic, well-appearing male in no acute distress. Head: Atraumatic Eyes: Normal Conjunctiva ENT: Normal External Ears, Nose and Mouth. Abd: Soft, non tender, non distended. There is a healing surgical incision over the right upper quadrant with a drain in place. The wound is draining a mild amount of serosanguineous fluid. There is no pus visualized. No surrounding erythema or warmth. No other signs of cellulitis. Back: No midline or flank tenderness Ext: No cyanosis, or edema Neur: Awake and alert Psych: Normal Mood and Affect Procedures/MDM 41-year-old male presented to the emergency department for examination of his postop drain after laparoscopic cholecystectomy. Physical examination is unremarkable for signs of cellulitis. There is no drainage from the wound. No surrounding warmth or erythema. Low suspicion for cellulitis or other emergent pathology. The patient was given reassurance and instructed to follow-up with his surgeon at his appointment in approximately 5 days. He may return sooner for any new or worsening symptoms. Follow-up with the primary care physician within 1-2 days was advised. Patient was advised to continue taking all the medication as prescribed by his surgeon and primary medical doctor. Departure Diagnosis: Primary Impression: Surgery follow-up examination Condition: Fair Patient Instructions: Post Op Wound Check, General [facility]: [facility] Usted se ruth hecho un examen mdico de control que le indica que no est en kel condicin que requiera tratamiento urgente en el Departamento de Emergencia. Un estudio ms profundo y el tratamiento de gillis condicin pueden esperar sin ningn riesgo hasta que usted sea atendida/o en el consultorio de gillis mdico o kel cl christiano. Es responsabilidad suya arreglar kel georgiana para el seguimiento del josé antonio. MANEJO DE CONDICIONES NO URGENTES EN EL FUTURO 1) Si usted tiene un mdico de atencin primaria: Usted debera llamar a gillis mdico de atencin primaria antes de venir al departamento de emergencia. Despus de las horas de consultorio, gillis doctor o gillis asociado/a est disponible por telfono. El mdico o enfermero de mary en el servicio telefnico puede asesorarle por penny medio para atender el problema, o josé antonio contrario se puede programar kel georgiana. 2) Si usted no tiene un mdico de atencin primaria: Llame al mdico o clnica de referencia que aparece abajo annamaria las horas de consultorio para hacer kel georgiana para que le vean. CLINICAS: [facility] [phone] [address] [facility] [phone] [facility] [phone] [place] [address] [phone] [place] [address] [phone] [facility]. [phone] [address] Additional Instructions: Ir a gillis georgiana con la specialista de cirugia en 2016. No mas mejor en 2-3 ambriz, regresar. Mas peor en 24 horas, regresear rapidamente. Ir a doctor primario in 5-7 ambriz. Usar instrucciones cuando socorro medicamento. TAYLOR RADER PA-C Dec 28, 2016 17:19
== END 2016-12-28 12:03 | disposition home or self-care (01) ==
LOC: FTE 10:54
DX: Z48.01 Encounter for change or removal of surgical wound dressing (principal)
CPT/HCPCS: 99281

== ENCOUNTER → 2017-01-02 | Outpatient (CLI) | payer MEDICAID ==
[~2017-01-02] VITALS: Ht 172.7 cm; Wt 111.4 kg
[2017-01-02 15:30] VITALS: BP 115/65; PULSE 93; RESP 16; Ht 172.7 cm; Wt 111.4 kg
--- NOTE | 2017-01-02 16:55 | PN ---
Date/Time of Note Date/Time of Note DATE: 01/02/17 TIME: 16:44 Assessment/Plan Assessment/Plan Assessment/Plan [facility] Progress Note Date of Service: 01/02/2017 Location of Service: [facility] fourth floor Today's Assessment & Plan: Overall stable and doing well. No clinically significant or obvious bile leak. Abdomen remains benign. No indications of major postoperative complications or wound problems. No indication for acute surgical intervention. Since the drain outputs per day were low (roughly 20 cc) and the appearance of the help with did not appear to be jaime bile, I decided to discontinue the drain in the office which we did with no issues. I did spend quite a bit of time with the patient and family discussing the needed changes in his life with the goal of bringing his BMI to below 24. I stressed the pathology findings of severe steatosis with the help of a liver model that demonstrated fatty liver disease as well as cirrhosis and hepatocellular carcinoma. Reviewed the multiple medical issues and risks that the patient was under due to his obesity and reviewed ways of achieving a healthier lifestyle with permanent lifestyle changes. Approximately 15 minutes of counseling time was used on this alone. I also encouraged the patient's family to do this as a group that would have multiple benefits for multiple members of the family. Note that the patient still has a common bile duct stent and this needs to be removed in the next few weeks. Patient and family clearly understood that they need to follow-up with gastroenterology for discontinuation of the common bile duct stents. Answered all questions and patient and family appear to understand above assessments and agreed with the plans. Please also note that after the patient left, I discovered that he had visited the emergency department on 12/28/2016 for drainage from his wound, but no evidence of infection was found and the patient was discharged home. I was not informed of this at the time of his visit. I also did not see any evidence of any wound infection in the patient's physical exam. With above assessment, I've recommended the following for today: 1. Follow-up with primary care physician in 1-2 weeks 2. Follow-up with Dr. Pierre from gastroenterology for removal of the common bile duct stent in the next 2-3 weeks 3. Follow up with us as needed; patient and family clearly understood to call me if there is any increasing abdominal pain, nausea, vomiting, fevers or chills , or any other changes given the small bile leak that we found postoperatively which was adequately treated without interventions, but that there is still a chance that this may become an issue in the near future. 4. Implement the needed permanent changes in lifestyle with the above goals of bringing the BMI between 18-24 Thank you again for your great care of this very pleasant patient and wonderful family. If there are any questions, please feel free to call me at [phone]. Nature of presenting problem: High severity Please note that, given the multiple number of diagnoses or management options, the moderate amount and/or complexity of data needed to be reviewed, and high risk of complications and/or morbidity or mortality, this qualifies as high complexity type of decision-making. Disclaimers: 1. Inadvertent spelling and grammatical errors are likely due to electronic health record (EHR)/dictation software used and do not reflect on the quality of delivered patient care. 2. The electronic timestamp recorded on this note does not necessarily reflect the actual date and time of the visit or the service. 3. Portions of this note may have been created through electronic templates and computer algorithms that might bring in information either from the system or from other physicians and providers. Please note that such information may or may not contain errors, the occurrence of which are outside of my control. In general (but not always) this happens either in the beginning or at the end of the note. The portion of the note that I have created are generally done in 1 continuous block of text, flanked at the beginning and at the end by " ", and entered into one field in the EHR. 4. There may be other unanticipated errors in the note that are outside of my control. I can only attest to the portions of the note that I have created. Updated clinical summary: Very pleasant 41-year-old gentleman with known history of cholelithiasis and BMI 38.2, admitted to the emergency department at [facility] on 12/11/2016 with cholelithiasis, acute cholecystitis, and possible choledocholithiasis. S/p an otherwise uncomplicated but challenging laparoscopic cholecystectomy with core needle liver biopsy at [facility] 12/13/16 with findings of severe acute on chronic cholecystitis and significant hepatic steatosis. Had brief period of rising LFTs that led to HIDA scan showing possible leak from cystic duct stump. This was followed by an MRCP that demonstrated intact common bile duct. Status post ERCP [facility] 12/16/2016 with finding of sludge within common bile duct and small bile leak from cystic duct staple line. Status post sphincterotomy, removal of sludge from common bile duct and placement of stent by Dr. Pierre. LFTs started to come down 1 day prior to ERCP and continue to come down after the procedure. DC home 2016. Brief visit to the emergency department [facility] 12/28 (no evidence of wound infection). Comorbidities: 1. Severe acute on chronic cholecystitis with known cholelithiasis. S/p an otherwise uncomplicated but challenging laparoscopic cholecystectomy with core needle liver biopsy at [facility] 12/13/16 with findings of severe acute on chronic cholecystitis and significant hepatic steatosis without obvious evidence of steatohepatitis. Status post ERCP [facility] 12/16/2016 Dr. Pierre: sludge within common bile duct and small bile leak from cystic duct staple line; s/p sphincterotomy, removal of sludge from common bile duct and placement of stent. DC home 12/17/2016. Brief visit to the emergency department [facility] 12/28/2016 (no evidence of wound infection). Drain DC'd at [facility] 2016 and otherwise benign findings during postoperative visit. 2. BMI 37.25 December 2016 (previously 38.24 November 2016) 3. Hepatic steatosis 4. Appendectomy Subjective: No major events or complaints since discharge (patient did not inform me of his visit to the emergency department); no abd pain and under control with medications; no n/v/d; no sob or cp; + flatus; + BM and normal; + activity; drain output mainly under 20 cc per day Objective: Vitals: See below Exam: GENERAL: On exam, the patient was sitting in a chair and appeared to be comfortable and in no acute distress. ABDOMEN: Soft, nontender and nondistended. Incisions were clean, dry and intact without any evidence of erythema, edema, discharge, or hernia. Surgical drain ss without obvious hint of bile; DC'd at bedside without any difficulties. There are no peritoneal signs or guarding. SKIN: Skin appears to be pink and feels warm to touch. NEUROLOGIC: Patient is awake, alert, and follows commands appropriately. Exam/Review of Systems Vital Signs Vitals Vital Signs Date Time Temp Pulse Resp B/P Pulse Ox O2 Delivery O2 Flow Rate FiO2 01/02/17 15:30 98.7 93 16 115/65 96 Room Air GREG LAWRENCE M.D. Jan 02, 2017 16:55
== END | disposition home or self-care (01) ==
LOC: HPC 15:10
PROVIDERS: ATTEND Transplant Surgery
DX: K80.10 Calculus of gallbladder with chronic cholecystitis without obstruction (principal); K76.0 Fatty (change of) liver, not elsewhere classified

== ENCOUNTER 2017-04-23 08:01 | Emergency (ER) | END 2017-04-23 11:13 | disposition home or self-care (01) ==